=== PATIENT | male | born 1955 | race African-American/Black ===

== ENCOUNTER 2016-11-12 05:34 | Inpatient (IN) | payer BC, OTHER ==
[~2016-11-12] VITALS: Ht 182.9 cm; Wt 95.3 kg
[2016-11-12] MEDS ORDERED: ASPIRIN 81 MG TAB.CHEW PO ONE (06:30)
[2016-11-12 06:38] LABS: BASO # 0.1 x10^3/uL (0.0-0.2); BASO % 1 % (0-3); EOS % 2 % (0-3); HEMATOCRIT 40.2 % (39.0-53.0); HEMOGLOBIN 13.3 g/dL (13.0-17.5); LYMPH # 2.4 x10^3/uL (1.0-4.8); LYMPH % 28 % (24-48); MEAN CORPUSCULAR HEMOGLOBIN 30 pg (25-35); MEAN CORPUSCULAR HGB CONC 33 g/dL (31-37); MEAN CORPUSCULAR VOLUME 91 fL (79-100); MONO % 6 % (0-9); NEUT % 64 % (31-73); PLATELET COUNT 229 x10^3/uL (140-400); RED BLOOD COUNT 4.42 x10^6/uL (4.30-5.70); RED CELL DISTRIBUTION WIDTH 15.7 % (11.5-14.5); WHITE BLOOD COUNT 8.6 x10^3/uL (4.0-11.0)
[2016-11-12 06:42] LABS: CALCIUM 8.5 mg/dL (8.5-10.1); CREATININE 1.5 mg/dL (0.7-1.3); GFR 57.8; POTASSIUM 4.3 mmol/L (3.5-5.1)
--- NOTE | 2016-11-12 07:20 | PHYS DOC ---
Past Medical History Past Medical History: Hypertension, TIA Past Surgical History: Other Additional Past Surgical Histo: EYE SURGERY Alcohol Use: Occasionally Drug Use: None Adult General Chief Complaint Chief Complaint: SHORTNESS OF BREATH HPI HPI Patient is a 61 year old male who presents after episode of SOB. Patient reports he had gotten up from bed ~0500 to go sit in his chair and he had an episode where he became hot, sweaty, and SOB. This resolved after a few minutes. Not feeling SOB at this time. Only complaint now is feeling "queasy" in his lower chest/epigastrium. He denies any chest pain, pressure, tightness. No prior similar episodes. He tried taking some sylvie tom and jodee seltzer at home with insufficient relief. He has also taken a baby ASA. Review of Systems Review of Systems Constitutional: Episode of feeling hot and clammy Eyes: Denies change in visual acuity or eye pain HENT: Denies nasal congestion or sore throat Respiratory: Shortness of breath now resolved. Denies cough. Cardiovascular: Feeling "queasy" in lower chest GI: Denies abdominal pain, vomiting, bloody stools or diarrhea : Denies dysuria or hematuria Musculoskeletal: Denies back pain or joint pain Integument: Denies rash or skin lesions Neurologic: Denies headache, focal weakness or sensory changes Current Medications Current Medications Current Medications Medications (Trade) Dose Ordered Sig/Jovita Start Time Stop Time Status Last Admin Dose Admin Aspirin (Children'S Aspirin) 324 mg 1X ONCE 11/12/16 06:30 11/12/16 06:31 DC 11/12/16 06:38 324 MG Allergies Allergies Allergies Coded Allergies Type Severity Reaction Last Updated Verified Corticosteroids (Glucocorticoids) Allergy Intermediate 11/12/16 Yes Physical Exam Physical Exam Constitutional: Well developed, well nourished, no acute distress, non-toxic appearance HENT: Normocephalic, atraumatic, bilateral external ears normal Eyes: EOMI, conjunctiva normal, no discharge Neck: Normal range of motion, no stridor Cardiovascular: Tachycardic, regular rhythm with occasional irregular beat, no murmur Lungs & Thorax: Scattered coarse breath sounds Abdomen: Bowel sounds normal, soft, non-distended, no TTP Skin: Warm, dry, no erythema, no rash Extremities: No obvious deformity, no edema Neurologic: Alert and oriented X 3, no gross deficits noted Current Patient Data Vital Signs Vital Signs Date Time Temp Pulse Resp B/P Pulse Ox O2 Delivery O2 Flow Rate FiO2 11/12/16 07:13 100 18 159/90 96 Room Air 11/12/16 05:50 97.5 97.5 Lab Values Laboratory Tests Test 11/12/16 06:06 11/12/16 06:26 White Blood Count 8.6x10^3/uL (4.0-11.0) Red Blood Count 4.42x10^6/uL (4.30-5.70) Hemoglobin 13.3g/dL (13.0-17.5) Hematocrit 40.2% (39.0-53.0) Mean Corpuscular Volume 91fL (79-100) Mean Corpuscular Hemoglobin 30pg (25-35) Mean Corpuscular Hemoglobin Concent 33g/dL (31-37) Red Cell Distribution Width 15.7% (11.5-14.5) H Platelet Count 229x10^3/uL (140-400) Neutrophils (%) (Auto) 64% (31-73) Lymphocytes (%) (Auto) 28% (24-48) Monocytes (%) (Auto) 6% (0-9) Eosinophils (%) (Auto) 2% (0-3) Basophils (%) (Auto) 1% (0-3) Neutrophils # (Auto) 5.5x10^3uL (1.8-7.7) Lymphocytes # (Auto) 2.4x10^3/uL (1.0-4.8) Monocytes # (Auto) 0.5x10^3/uL (0.0-1.1) Eosinophils # (Auto) 0.2x10^3/uL (0.0-0.7) Basophils # (Auto) 0.1x10^3/uL (0.0-0.2) Sodium Level 143mmol/L (136-145) Potassium Level 4.3mmol/L (3.5-5.1) Chloride Level 106mmol/L (98-107) Carbon Dioxide Level 26mmol/L (21-32) Anion Gap 11 (6-14) Blood Urea Nitrogen 19mg/dL (8-26) Creatinine 1.5mg/dL (0.7-1.3) H Estimated GFR (Cockcroft-Gault) 57.8 Glucose Level 203mg/dL (70-99) H Calcium Level 8.5mg/dL (8.5-10.1) Troponin I Quantitative 0.057ng/mL (0.000-0.055) VF-Ryk-V-Type Natriuretic Peptide 2233pg/mL (0-124) H Laboratory Tests 11/12/16 06:06 Laboratory Tests 11/12/16 06:06 EKG EKG EKG (my read): sinus tachycardia, rate 107, LAD, single PVC noted, nonspecific ST changes Radiology/Procedures Radiology/Procedures CXR: Impression: 1. Bilateral hazy infiltrates. 2. Possible vascular congestion. Course & Med Decision Making Course & Med Decision Making Pertinent Labs and Imaging studies reviewed. (See chart for details) Patient is 61 year old male who presents after episode of SOB and diaphoresis. Concern for ACS. Will check EKG, CXR, labs. ASA ordered. Monitor shows frequent PVCs. CXR abnormal, results as above; BNP added to orders (still pending). Labs notable for minimal troponin elevation, although there is good chance that this will continue to trend up. Discussed with Dr. Munoz, will start heparin at this time. Discussed results with patient. I spoke with Dr. Cox, will admit under his care for further evaluation and treatment. Dragon Disclaimer Dragon Disclaimer This electronic medical record was generated, in whole or in part, using a voice recognition dictation system. Departure Departure Impression: Primary Impression: Elevated troponin I level Additional Impression: SOB (shortness of breath) Disposition: ADMITTED INPATIENT Admitting Physician: Nayan Cox Condition: STABLE Referrals: NON,STAFF (PCP) Problem Qualifiers LUCIA ABRAHAM MD Nov 12, 2016 07:20
[2016-11-12] MEDS ORDERED: MORPHINE SULFATE 4 MG/ML DISP.SYRIN. IV PRN (07:30)
[2016-11-12] MEDS ORDERED: NITROGLYCERIN SUBLINGUAL 0.4 MG BOTTLE OF 25. SL PRN ×2 (07:30)
[2016-11-12] MEDS ORDERED: ACETAMINOPHEN 325 MG TABLET. PO PRN (07:30)
[2016-11-12] MEDS ORDERED: HEPARIN for IV BOLUS 10,000 UNIT/10 ML VIAL. IV PRN (07:30)
[2016-11-12] MEDS ORDERED: ONDANSETRON PF 4 MG/2 ML VIAL. IV PRN (07:30)
[2016-11-12] MEDS ORDERED: HEPARIN for IV BOLUS 10,000 UNIT/10 ML VIAL. IV ONE (07:30)
--- NOTE | 2016-11-12 07:31 | RAD ---
PA and lateral chest. History: Short of breath PA and lateral views were taken of the chest. The heart is upper normal in size. There is mild pulmonary vascular congestion. There is haziness in the lungs from pulmonary edema or hazy infiltrates. There is no pleural effusion. Impression: 1. Bilateral hazy infiltrates. 2. Possible vascular congestion.
[2016-11-12] MEDS: HEPARIN 25,000UTS/500ML PREMIX 500 ML IV PRN (07:50)
--- NOTE | 2016-11-12 08:30 | EKG ---
[facility] [address] [place] [address] Test Date: 2016-11-12 Test Time: 06:20:02 Pat Name: ESTEFANÍA ZUINGA Department: Room: 260 1 Gender: M Acute Specialist: : [id number] Requested By: LUCIA ABRAHAM Order Number: [id number] Reading MD: Mirela Amin Measurements Intervals [place] Rate: 107 P: 47 [place]: 146 QRS: -16 QRSD: 100 T: 124 QT: 358 QTc: 477 Interpretive Statements SINUS TACHYCARDIA VENTRICULAR PREMATURE COMPLEX(ES) LEFT ATRIAL ABNORMALITY LEFTWARD AXIS INCOMPLETE RIGHT BUNDLE BRANCH BLOCK T ABNORMALITY IN ANTEROLATERAL LEADS ABNORMAL ECG RI6.01 No previous ECG available for comparison Electronically Signed On 11-15-2016 23:21:15 [employer]PERVISOR [employer]AK[employer] by Mirela Amin
[2016-11-12 11:30] VITALS: BP 140/104
[2016-11-12 11:31] VITALS: BP 140/106
[2016-11-12 11:47] LABS: OBC FLU VALID
[2016-11-12 14:54] VITALS: BP 156/114
[2016-11-12] MEDS ORDERED: MAGNESIUM SULFATE 1GM 100 ML IV ONE (18:00)
[2016-11-12] MEDS: NITROGLYCERIN OINT 1 GM PACKET. TP SCH (18:05)
--- NOTE | 2016-11-12 19:12 | PDOC2 ---
CONSULT Date of Consult Date of Consult DATE: 11/12/16 TIME: 19:07 Reason for Consult Reason for Consult: Shortness of breath, Referring Physician Referring Physician: Dr. Cox Identification/Chief Complaint Chief Complaint SOB Source Source: Patient History of Present Illness Reason for Visit: The patient is a 61-year-old male who presented to the emergency room with 1-2 days of increasing shortness of breath and mild epigastric discomfort. His chest x-ray showed bilateral infiltrates, EKG showed a sinus tachycardia with mild nonspecific ST-T wave changes. Lab testing was significant for troponin of 0.057, a BNP of 2233 and a magnesium level of 1.6. The patient's history is significant for hypertension and a TIA. He is feeling better at this time. He is still mildly short of breath but discomfort has resolved. Past Medical History Cardiovascular: HTN CENTRAL NERVOUS SYSTEM: TIA Past Surgical History Past Surgical History: Other (eye surgery) Family History Family History: Hypertension Social History No Current Problem List Problem List Problems Medical Problems: (1) Elevated troponin I level Status: Acute (2) SOB (shortness of breath) Status: Acute Current Medications Current Medications Current Medications Aspirin (Children'S Aspirin) 324 mg 1X ONCE PO Last administered on 11/12/16 06:38; Start 11/12/16 at 06:30; Stop 11/12/16 at 06:31; Status DC Heparin Sodium (Porcine) 4000 unit 4,000 unit 1X ONCE IV Last administered on 11/12/16 07:49; Start 11/12/16 at 07:30; Stop 11/12/16 at 07:31; Status DC Heparin Sodium/ Dextrose 500 ml @ 0 mls/hr CONT PRN IV SEE I/O RECORD Last administered on 11/12/16 07:50; Start 11/12/16 at 07:30 Heparin Sodium (Porcine) 2,400 unit PRN Q6HRS PRN IV FOR UFH LEVEL LESS THAN 0.2; Start 11/12/16 at 07:30 Nitroglycerin (Nitrostat) 0.4 mg PRN Q5MIN PRN SL CHEST PAIN; Start 11/12/16 at 07:30 Ondansetron HCl (Zofran) 4 mg PRN Q8HRS PRN IV NAUSEA/VOMITING; Start 11/12/16 at 07:30; Stop 11/13/16 at 07:29 Morphine Sulfate 4 mg PRN Q2HR PRN IV PAIN; Start 11/12/16 at 07:30; Stop at 07:29 Acetaminophen (Tylenol) 650 mg PRN Q4HRS PRN PO FEVER; Start 11/12/16 at 07:30; Stop 11/13/16 at 07:29 Nitroglycerin (Nitrostat) 0.4 mg PRN Q5MIN PRN SL CHEST PAIN; Start 11/12/16 at 07:30; Stop 11/13/16 at 07:29 Nitroglycerin 1 inch 1 inch Q6HRS TP Last administered on 11/12/16 18:05; Start 11/12/16 at 18:00 Magnesium Sulfate/ Dextrose (Magnesium Sulfate PREMIX 1GM) 100 ml @ 100 mls/hr 1X ONCE IV Last administered on 11/12/16 18:05; Start 11/12/16 at 18:00; Stop 11/12/16 at 18:59; Status DC Allergies Allergies: Coded Allergies: Corticosteroids (Glucocorticoids) (Verified Allergy, Intermediate, 11/12/16) ROS Respiratory: YES: SOB with excertion, Shortness of breath Physical Exam General: mild distress HEENT: Atraumatic Lungs: Other (mildly decreased breath sounds) Heart: Other (tachycardia rate of 14) Abdomen: Normal bowel sounds Vitals VITALS Vital Signs Date Time Temp Pulse Resp B/P Pulse Ox O2 Delivery O2 Flow Rate FiO2 11/12/16 18:05 92 156/114 11/12/16 14:54 98.1 16 97 Room Air 98.1 Labs Labs Laboratory Tests Test 11/12/16 06:06 11/12/16 06:26 11/12/16 13:10 11/12/16 14:10 White Blood Count 8.6x10^3/uL (4.0-11.0) Red Blood Count 4.42x10^6/uL (4.30-5.70) Hemoglobin 13.3g/dL (13.0-17.5) Hematocrit 40.2% (39.0-53.0) Mean Corpuscular Volume 91fL (79-100) Mean Corpuscular Hemoglobin 30pg (25-35) Mean Corpuscular Hemoglobin Concent 33g/dL (31-37) Red Cell Distribution Width 15.7% (11.5-14.5) Platelet Count 229x10^3/uL (140-400) Neutrophils (%) (Auto) 64% (31-73) Lymphocytes (%) (Auto) 28% (24-48) Monocytes (%) (Auto) 6% (0-9) Eosinophils (%) (Auto) 2% (0-3) Basophils (%) (Auto) 1% (0-3) Neutrophils # (Auto) 5.5x10^3uL (1.8-7.7) Lymphocytes # (Auto) 2.4x10^3/uL (1.0-4.8) Monocytes # (Auto) 0.5x10^3/uL (0.0-1.1) Eosinophils # (Auto) 0.2x10^3/uL (0.0-0.7) Basophils # (Auto) 0.1x10^3/uL (0.0-0.2) Sodium Level 143mmol/L (136-145) Potassium Level 4.3mmol/L (3.5-5.1) Chloride Level 106mmol/L (98-107) Carbon Dioxide Level 26mmol/L (21-32) Anion Gap 11 (6-14) Blood Urea Nitrogen 19mg/dL (8-26) Creatinine 1.5mg/dL (0.7-1.3) Estimated GFR (Cockcroft-Gault) 57.8 Glucose Level 203mg/dL (70-99) Calcium Level 8.5mg/dL (8.5-10.1) Magnesium Level 1.6mg/dL (1.8-2.4) Troponin I Quantitative 0.057ng/mL (0.000-0.055) 0.078ng/mL (0.000-0.055) Influenza Type A Antigen Negative (NEGATIVE) Influenza Type B Antigen Negative (NEGATIVE) EB-Jwp-C-Type Natriuretic Peptide 2233pg/mL (0-124) Heparin Anti-Xa Act, Unfractionated 0.30IU/mL (0.30-0.70) Laboratory Tests Test 11/12/16 06:06 11/12/16 06:26 11/12/16 13:10 11/12/16 14:10 White Blood Count 8.6x10^3/uL (4.0-11.0) Red Blood Count 4.42x10^6/uL (4.30-5.70) Hemoglobin 13.3g/dL (13.0-17.5) Hematocrit 40.2% (39.0-53.0) Mean Corpuscular Volume 91fL (79-100) Mean Corpuscular Hemoglobin 30pg (25-35) Mean Corpuscular Hemoglobin Concent 33g/dL (31-37) Red Cell Distribution Width 15.7% (11.5-14.5) Platelet Count 229x10^3/uL (140-400) Neutrophils (%) (Auto) 64% (31-73) Lymphocytes (%) (Auto) 28% (24-48) Monocytes (%) (Auto) 6% (0-9) Eosinophils (%) (Auto) 2% (0-3) Basophils (%) (Auto) 1% (0-3) Neutrophils # (Auto) 5.5x10^3uL (1.8-7.7) Lymphocytes # (Auto) 2.4x10^3/uL (1.0-4.8) Monocytes # (Auto) 0.5x10^3/uL (0.0-1.1) Eosinophils # (Auto) 0.2x10^3/uL (0.0-0.7) Basophils # (Auto) 0.1x10^3/uL (0.0-0.2) Sodium Level 143mmol/L (136-145) Potassium Level 4.3mmol/L (3.5-5.1) Chloride Level 106mmol/L (98-107) Carbon Dioxide Level 26mmol/L (21-32) Anion Gap 11 (6-14) Blood Urea Nitrogen 19mg/dL (8-26) Creatinine 1.5mg/dL (0.7-1.3) Estimated GFR (Cockcroft-Gault) 57.8 Glucose Level 203mg/dL (70-99) Calcium Level 8.5mg/dL (8.5-10.1) Magnesium Level 1.6mg/dL (1.8-2.4) Troponin I Quantitative 0.057ng/mL (0.000-0.055) 0.078ng/mL (0.000-0.055) Influenza Type A Antigen Negative (NEGATIVE) Influenza Type B Antigen Negative (NEGATIVE) BR-Wdd-O-Type Natriuretic Peptide 2233pg/mL (0-124) Heparin Anti-Xa Act, Unfractionated 0.30IU/mL (0.30-0.70) Images Images Chest x-ray shows bilateral infiltrates. Assessment/Plan Assessment/Plan 1. Shortness of breath. Probable acute on chronic diastolic heart failure. BNP of 2233. Patient has been treated with pulmonary medications and mild diuresis and is feeling better. We'll check an echocardiogram. Continue present medications. 2. Mild elevation in troponin. We'll rule out for myocardial infarction. No acute EKG changes. Echocardiogram as above. 3. Hypomagnesemia. Replace and monitor magnesium. 4. Hypertension. We'll adjust all medications. 5. History of a TIA. Thank you for allowing us to participate in the care of your patient. SCOTT HUNT MD Nov 12, 2016 19:12
[2016-11-12 19:30] VITALS: BP 118/88
[2016-11-12 23:30] VITALS: BP 132/86
--- NOTE | 2016-11-13 02:57 | HP ---
ADMIT DATE: 11/12/2016 CHIEF COMPLAINT: Shortness of breath. HISTORY OF PRESENT ILLNESS: The patient is a pleasant 61-year-old male who presents with shortness of breath. It has been occurring for several days. He tried increasing his home meds, but that was not working. He has associated sweating. While he was in the ER, he was noted to have a slight bump in his troponin to 0.05, but his creatinine is also little high at 1.5. I suspect this could be chronic. His BNP level is also high at 2233. Chest x-ray is showing some bilateral hazy infiltrates and possible CHF. The patient will be admitted. We will consult Pulmonary Medicine and Cardiology. PAST MEDICAL HISTORY: Reviewed. Please refer to the computerized H and P including hypertension, TIAs and eye surgery. ALLERGIES: Corticosteroids. FAMILY HISTORY: Coronary artery disease. SOCIAL HISTORY: Does not drink, smoke or take drugs. MEDICATIONS: Reviewed, please refer to the MRAD. REVIEW OF SYSTEMS: GENERAL: No history of weight change, weakness or fevers. SKIN: No bruising, hair changes or rashes. EYES: No blurred, double or loss of vision. NOSE AND THROAT: No history of nosebleeds, hoarseness or sore throat. HEART: No history of palpitations, chest pain or shortness of breath on exertion. PULMONARY: Complains of shortness of breath. GASTROINTESTINAL: Denies changes in appetite, nausea, vomiting, diarrhea or constipation. GENITOURINARY: No history of frequency, urgency, hesitancy or nocturia. NEUROLOGIC: Denies history of numbness, tingling, tremor or weakness. PSYCHIATRIC: No history of panic, anxiety or depression. ENDOCRINE: No history of heat or cold intolerance, polyuria or polydipsia. EXTREMITIES: Denies muscle weakness, joint pain, pain on walking or stiffness. PHYSICAL EXAMINATION: VITAL SIGNS: Temperature afebrile, pulse 67, respirations 18, blood pressure 140/104, O2 sats 96% on room air. GENERAL: He is alert, cooperative. HEART: Normal S1, S2. LUNGS: Clear with slight crackles on the right. ABDOMEN: Soft, positive bowel sounds. EXTREMITIES: 1+ edema. SKIN: No rashes. PSYCHIATRIC: Stable. VASCULAR: Good capillary refill. ENDOCRINE: No thyromegaly. LYMPHATICS: No cervical nodes. HEMATOPOIETIC: No bruising. LABORATORY DATA: White count 8, hemoglobin 13, platelets 229. Electrolytes normal other than a creatinine of 1.5. Troponin 0.057. BNP 2233. ASSESSMENT AND PLAN: Acute on chronic systolic and diastolic heart failure with a possible myocardial infarction, chronic renal insufficiency and possible pneumonia. The patient has been admitted. We are consulting Cardiology and Pulmonary Medicine. PT, OT to evaluate and treat. Frequent labs. DuJosephb, p.r.n. oxygen. Long-term prognosis is guarded. GLENROY GRANADOS DO DR: DALJIT/maddison JOB#: [id number] / [id number]
[2016-11-13 03:32] VITALS: BP 146/96
[2016-11-13 05:34] LABS: BASO % 1 % (0-3); EOS % 4 % (0-3); HEMATOCRIT 41.7 % (39.0-53.0); HEMOGLOBIN 13.5 g/dL (13.0-17.5); LYMPH % 31 % (24-48); MEAN CORPUSCULAR HEMOGLOBIN 30 pg (25-35); MEAN CORPUSCULAR HGB CONC 32 g/dL (31-37); MEAN CORPUSCULAR VOLUME 92 fL (79-100); MONO % 10 % (0-9); NEUT % 54 % (31-73); PLATELET COUNT 223 x10^3/uL (140-400); RED BLOOD COUNT 4.51 x10^6/uL (4.30-5.70); RED CELL DISTRIBUTION WIDTH 15.3 % (11.5-14.5); WHITE BLOOD COUNT 6.6 x10^3/uL (4.0-11.0)
[2016-11-13 05:54] LABS: CALCIUM 8.7 mg/dL (8.5-10.1); CREATININE 1.2 mg/dL (0.7-1.3); GFR 74.7; POTASSIUM 3.5 mmol/L (3.5-5.1)
[2016-11-13 06:00] LABS: CHOLESTEROL/HDL RATIO 3.6; MAGNESIUM 1.8 mg/dL (1.8-2.4)
[2016-11-13] MEDS: HEPARIN 25,000UTS/500ML PREMIX 500 ML IV PRN (06:21)
[2016-11-13] MEDS: NITROGLYCERIN OINT 1 GM PACKET. TP SCH ×4 (06:22→18:15)
[2016-11-13 07:00] VITALS: BP 130/95
[2016-11-13 11:00] VITALS: BP 131/98
--- NOTE | 2016-11-13 11:14 | CARD ---
APPROVED REPORT EXAM: Two-dimensional and M-mode echocardiogram with Doppler and color Doppler. Other Information Quality : Average Rhythm : NSR INDICATION Congestive Heart Failure 2D DIMENSIONS RVDd2.4 (2.9-3.5cm)Left Atrium(2D)4.7 (1.6-4.0cm) IVSd1.8 (0.7-1.1cm)Aortic Root(2D)3.4 (2.0-3.7cm) LVDd6.0 (3.9-5.9cm)LVOT Diameter2.5 (1.8-2.4cm) PWd1.8 (0.7-1.1cm)LVDs6.3 (2.5-4.0cm) FS (%) 6.1 %SV25.9 ml LVEF(%)14.6 (>50%) Aortic Valve AoV Peak Elio.76.5cm/sAoV VTI10.2cm AO Peak GR.2.3mmHgLVOT Peak Elio.59.5cm/s LVOT VTI 7.80cmAO Mean GR.1mmHg LUCAS (VMAX)3.12ml5CNY (VTI)3.69cm2 Mitral Valve MV E Aggxdgse39.0cm/sMV E Peak Gr.83mmHg MV DECEL [id number] A Jllidkft86.4cm/s MV E Mean Gr.1mmHgMV NRU57mp E/A Ratio1.4MV A Htadlbxr64qm MVA (PHT)6.21cm2 TDI E/Lateral E'6.4E/Medial E'9.6 Pulmonary Valve RVOT VTI7.5cm Tricuspid Valve TR P. Jbhcotld381qv/sRAP [id number] TR Peak Gr.35jcXsOKBY53axXl LEFT VENTRICLE The Left Ventricle is mildly dilated. There is moderate concentric left ventricular hypertrophy. Left ventricle systolic function is severely impaired. The Ejection Fraction is 10-15%. There is severe g lobal hypokinesis of the left ventricle. Tissue Doppler imaging reveals severe left ventricular diast olic dysfunction. RIGHT VENTRICLE The right ventricle is normal size. The right ventricular systolic function is normal. ATRIA The left atrium is mildly dilated. The right atrium size is normal. The interatrial septum is intact with no evidence for an atrial septal defect or patent foramen ovale as noted on 2-D or Doppler imagi ng. The septum bows towards the right suggestive of increased left atrial pressures. AORTIC VALVE The aortic valve is normal in structure and function. The aortic valve is trileaflet. Doppler and Col or Flow revealed no significant aortic regurgitation. There is no significant aortic valvular stenosi s. MITRAL VALVE The mitral valve leaflets are thickened. The posterior leaflet is restricted in motion. There is no m itral valve stenosis. Doppler and Color Flow revealed moderate posteriorly directed mitral regurgitat ion. TRICUSPID VALVE The tricuspid valve is normal in structure and function. Doppler and Color Flow revealed moderate tri cuspid regurgitation. There is moderate pulmonary hypertension. The PA pressure was estimated at 51 m mHg. There is no tricuspid valve stenosis. PULMONIC VALVE Doppler and Color Flow revealed mild pulmonic valvular regurgitation. There is no pulmonic valvular s tenosis. GREAT VESSELS The aortic root is normal in size. The IVC is normal in size and collapses >50% with inspiration. PERICARDIAL EFFUSION There is no evidence of significant pericardial effusion. Critical Notification Date: 11/13/2016 Time: 10:10 Other Discipline : Giovanna Harrison APRN Critical Value: Yes <Conclusion> Left ventricle systolic function is severely impaired. The Ejection Fraction is 10-15%. There is severe global hypokinesis of the left ventricle. Tissue Doppler imaging reveals severe left ventricular diastolic dysfunction. Doppler and Color Flow revealed moderate tricuspid regurgitation. There is moderate pulmonary hyperte nsion. The PA pressure was estimated at 51 mmHg. Doppler and Color Flow revealed moderate posteriorly directed mitral regurgitation.
[2016-11-13] MEDS ORDERED: SULFUR HEXAFLUORIDE MICROSPHR 25 MG VIAL. IVP ONE ×3 (11:44→12:00)
--- NOTE | 2016-11-13 11:48 | PDOC ---
PROGRESS NOTES Chief Complaint Chief Complaint cc: sob A/P ACUTE ON CHORIONIC SYSTOLIC CHF SEVERE CARDIOMYOPATHY ELEVATED TROPONIN PLAN IV LASIX 40 TIMES 1, MONITOR AND REPLACE ELECTROLYTES ON HEPARIN GTT PER ACS PROTOCOL, POSSIBLE CARDIAC CATH IN AM TO R/O CAD D/W AT BEDSIDE COREG AND LISINOPRIL ELECTROLYTE REPLACED. , History of Present Illness History of Present Illness NO CHEST PAIN NO SOB NO FEVER NO SWEATING Vitals Vitals Vital Signs Date Time Temp Pulse Resp B/P Pulse Ox O2 Delivery O2 Flow Rate FiO2 11/13/16 11:00 97.6 89 20 131/98 97 Room Air 97.6 Physical Exam General: Alert, Oriented X3, mild distress Heart: Regular rate, Normal S1, Normal S2, Other Lungs: Clear Abdomen: Normal bowel sounds, Soft Extremities: No clubbing, No cyanosis Labs LABS Laboratory Tests Test 11/12/16 13:10 11/12/16 14:10 11/12/16 19:15 11/12/16 22:05 Troponin I Quantitative 0.078ng/mL (0.000-0.055) 0.060ng/mL (0.000-0.055) Heparin Anti-Xa Act, Unfractionated 0.30IU/mL (0.30-0.70) 0.26IU/mL (0.30-0.70) Test 11/13/16 05:00 11/13/16 05:09 11/13/16 10:45 Heparin Anti-Xa Act, Unfractionated 0.37IU/mL (0.30-0.70) 0.45IU/mL (0.30-0.70) White Blood Count 6.6x10^3/uL (4.0-11.0) Red Blood Count 4.51x10^6/uL (4.30-5.70) Hemoglobin 13.5g/dL (13.0-17.5) Hematocrit 41.7% (39.0-53.0) Mean Corpuscular Volume 92fL (79-100) Mean Corpuscular Hemoglobin 30pg (25-35) Mean Corpuscular Hemoglobin Concent 32g/dL (31-37) Red Cell Distribution Width 15.3% (11.5-14.5) Platelet Count 223x10^3/uL (140-400) Neutrophils (%) (Auto) 54% (31-73) Lymphocytes (%) (Auto) 31% (24-48) Monocytes (%) (Auto) 10% (0-9) Eosinophils (%) (Auto) 4% (0-3) Basophils (%) (Auto) 1% (0-3) Neutrophils # (Auto) 3.6x10^3uL (1.8-7.7) Lymphocytes # (Auto) 2.0x10^3/uL (1.0-4.8) Monocytes # (Auto) 0.7x10^3/uL (0.0-1.1) Eosinophils # (Auto) 0.2x10^3/uL (0.0-0.7) Basophils # (Auto) 0.0x10^3/uL (0.0-0.2) Sodium Level 141mmol/L (136-145) Potassium Level 3.5mmol/L (3.5-5.1) Chloride Level 105mmol/L (98-107) Carbon Dioxide Level 27mmol/L (21-32) Anion Gap 9 (6-14) Blood Urea Nitrogen 10mg/dL (8-26) Creatinine 1.2mg/dL (0.7-1.3) Estimated GFR (Cockcroft-Gault) 74.7 Glucose Level 137mg/dL (70-99) Calcium Level 8.7mg/dL (8.5-10.1) Magnesium Level 1.8mg/dL (1.8-2.4) Troponin I Quantitative 0.082ng/mL (0.000-0.055) Triglycerides Level 106mg/dL (0-150) Cholesterol Level 171mg/dL (0-200) LDL Cholesterol, Calculated 103mg/dL (0-100) VLDL Cholesterol, Calculated 21mg/dL (0-40) HDL Cholesterol 47mg/dL (40-60) Cholesterol/HDL Ratio 3.6 Assessment and Plan Assessmemt and Plan Problems Medical Problems: (1) Elevated troponin I level Status: Acute (2) SOB (shortness of breath) Status: Acute Problems: Comment Review of Relevant I have reviewed the following items varsha (where applicable) has been applied. Labs Laboratory Tests Test 11/12/16 06:06 11/12/16 06:26 11/12/16 13:10 11/12/16 14:10 White Blood Count 8.6x10^3/uL (4.0-11.0) Red Blood Count 4.42x10^6/uL (4.30-5.70) Hemoglobin 13.3g/dL (13.0-17.5) Hematocrit 40.2% (39.0-53.0) Mean Corpuscular Volume 91fL (79-100) Mean Corpuscular Hemoglobin 30pg (25-35) Mean Corpuscular Hemoglobin Concent 33g/dL (31-37) Red Cell Distribution Width 15.7% (11.5-14.5) Platelet Count 229x10^3/uL (140-400) Neutrophils (%) (Auto) 64% (31-73) Lymphocytes (%) (Auto) 28% (24-48) Monocytes (%) (Auto) 6% (0-9) Eosinophils (%) (Auto) 2% (0-3) Basophils (%) (Auto) 1% (0-3) Neutrophils # (Auto) 5.5x10^3uL (1.8-7.7) Lymphocytes # (Auto) 2.4x10^3/uL (1.0-4.8) Monocytes # (Auto) 0.5x10^3/uL (0.0-1.1) Eosinophils # (Auto) 0.2x10^3/uL (0.0-0.7) Basophils # (Auto) 0.1x10^3/uL (0.0-0.2) Sodium Level 143mmol/L (136-145) Potassium Level 4.3mmol/L (3.5-5.1) Chloride Level 106mmol/L (98-107) Carbon Dioxide Level 26mmol/L (21-32) Anion Gap 11 (6-14) Blood Urea Nitrogen 19mg/dL (8-26) Creatinine 1.5mg/dL (0.7-1.3) Estimated GFR (Cockcroft-Gault) 57.8 Glucose Level 203mg/dL (70-99) Calcium Level 8.5mg/dL (8.5-10.1) Magnesium Level 1.6mg/dL (1.8-2.4) Troponin I Quantitative 0.057ng/mL (0.000-0.055) 0.078ng/mL (0.000-0.055) Influenza Type A Antigen Negative (NEGATIVE) Influenza Type B Antigen Negative (NEGATIVE) CV-Low-H-Type Natriuretic Peptide 2233pg/mL (0-124) Heparin Anti-Xa Act, Unfractionated 0.30IU/mL (0.30-0.70) Test 11/12/16 19:15 11/12/16 22:05 11/13/16 05:00 11/13/16 05:09 Troponin I Quantitative 0.060ng/mL (0.000-0.055) 0.082ng/mL (0.000-0.055) Heparin Anti-Xa Act, Unfractionated 0.26IU/mL (0.30-0.70) 0.37IU/mL (0.30-0.70) White Blood Count 6.6x10^3/uL (4.0-11.0) Red Blood Count 4.51x10^6/uL (4.30-5.70) Hemoglobin 13.5g/dL (13.0-17.5) Hematocrit 41.7% (39.0-53.0) Mean Corpuscular Volume 92fL (79-100) Mean Corpuscular Hemoglobin 30pg (25-35) Mean Corpuscular Hemoglobin Concent 32g/dL (31-37) Red Cell Distribution Width 15.3% (11.5-14.5) Platelet Count 223x10^3/uL (140-400) Neutrophils (%) (Auto) 54% (31-73) Lymphocytes (%) (Auto) 31% (24-48) Monocytes (%) (Auto) 10% (0-9) Eosinophils (%) (Auto) 4% (0-3) Basophils (%) (Auto) 1% (0-3) Neutrophils # (Auto) 3.6x10^3uL (1.8-7.7) Lymphocytes # (Auto) 2.0x10^3/uL (1.0-4.8) Monocytes # (Auto) 0.7x10^3/uL (0.0-1.1) Eosinophils # (Auto) 0.2x10^3/uL (0.0-0.7) Basophils # (Auto) 0.0x10^3/uL (0.0-0.2) Sodium Level 141mmol/L (136-145) Potassium Level 3.5mmol/L (3.5-5.1) Chloride Level 105mmol/L (98-107) Carbon Dioxide Level 27mmol/L (21-32) Anion Gap 9 (6-14) Blood Urea Nitrogen 10mg/dL (8-26) Creatinine 1.2mg/dL (0.7-1.3) Estimated GFR (Cockcroft-Gault) 74.7 Glucose Level 137mg/dL (70-99) Calcium Level 8.7mg/dL (8.5-10.1) Magnesium Level 1.8mg/dL (1.8-2.4) Triglycerides Level 106mg/dL (0-150) Cholesterol Level 171mg/dL (0-200) LDL Cholesterol, Calculated 103mg/dL (0-100) VLDL Cholesterol, Calculated 21mg/dL (0-40) HDL Cholesterol 47mg/dL (40-60) Cholesterol/HDL Ratio 3.6 Test 11/13/16 10:45 Heparin Anti-Xa Act, Unfractionated 0.45IU/mL (0.30-0.70) Laboratory Tests Test 11/12/16 13:10 11/12/16 14:10 11/12/16 19:15 11/12/16 22:05 Troponin I Quantitative 0.078ng/mL (0.000-0.055) 0.060ng/mL (0.000-0.055) Heparin Anti-Xa Act, Unfractionated 0.30IU/mL (0.30-0.70) 0.26IU/mL (0.30-0.70) Test 11/13/16 05:00 11/13/16 05:09 11/13/16 10:45 Heparin Anti-Xa Act, Unfractionated 0.37IU/mL (0.30-0.70) 0.45IU/mL (0.30-0.70) White Blood Count 6.6x10^3/uL (4.0-11.0) Red Blood Count 4.51x10^6/uL (4.30-5.70) Hemoglobin 13.5g/dL (13.0-17.5) Hematocrit 41.7% (39.0-53.0) Mean Corpuscular Volume 92fL (79-100) Mean Corpuscular Hemoglobin 30pg (25-35) Mean Corpuscular Hemoglobin Concent 32g/dL (31-37) Red Cell Distribution Width 15.3% (11.5-14.5) Platelet Count 223x10^3/uL (140-400) Neutrophils (%) (Auto) 54% (31-73) Lymphocytes (%) (Auto) 31% (24-48) Monocytes (%) (Auto) 10% (0-9) Eosinophils (%) (Auto) 4% (0-3) Basophils (%) (Auto) 1% (0-3) Neutrophils # (Auto) 3.6x10^3uL (1.8-7.7) Lymphocytes # (Auto) 2.0x10^3/uL (1.0-4.8) Monocytes # (Auto) 0.7x10^3/uL (0.0-1.1) Eosinophils # (Auto) 0.2x10^3/uL (0.0-0.7) Basophils # (Auto) 0.0x10^3/uL (0.0-0.2) Sodium Level 141mmol/L (136-145) Potassium Level 3.5mmol/L (3.5-5.1) Chloride Level 105mmol/L (98-107) Carbon Dioxide Level 27mmol/L (21-32) Anion Gap 9 (6-14) Blood Urea Nitrogen 10mg/dL (8-26) Creatinine 1.2mg/dL (0.7-1.3) Estimated GFR (Cockcroft-Gault) 74.7 Glucose Level 137mg/dL (70-99) Calcium Level 8.7mg/dL (8.5-10.1) Magnesium Level 1.8mg/dL (1.8-2.4) Troponin I Quantitative 0.082ng/mL (0.000-0.055) Triglycerides Level 106mg/dL (0-150) Cholesterol Level 171mg/dL (0-200) LDL Cholesterol, Calculated 103mg/dL (0-100) VLDL Cholesterol, Calculated 21mg/dL (0-40) HDL Cholesterol 47mg/dL (40-60) Cholesterol/HDL Ratio 3.6 Medications Current Medications Aspirin (Children'S Aspirin) 324 mg 1X ONCE PO Last administered on 11/12/16 06:38; Start 11/12/16 at 06:30; Stop 11/12/16 at 06:31; Status DC Heparin Sodium (Porcine) 4000 unit 4,000 unit 1X ONCE IV Last administered on 11/12/16 07:49; Start 11/12/16 at 07:30; Stop 11/12/16 at 07:31; Status DC Heparin Sodium/ Dextrose 500 ml @ 0 mls/hr CONT PRN IV SEE I/O RECORD Last administered on 11/13/16 06:21; Start 11/12/16 at 07:30 Heparin Sodium (Porcine) 2,400 unit PRN Q6HRS PRN IV FOR UFH LEVEL LESS THAN 0.2; Start 11/12/16 at 07:30 Nitroglycerin (Nitrostat) 0.4 mg PRN Q5MIN PRN SL CHEST PAIN; Start 11/12/16 at 07:30 Ondansetron HCl (Zofran) 4 mg PRN Q8HRS PRN IV NAUSEA/VOMITING; Start 11/12/16 at 07:30; Stop 11/13/16 at 07:29; Status DC Morphine Sulfate 4 mg PRN Q2HR PRN IV PAIN; Start 11/12/16 at 07:30; Stop at 07:29; Status DC Acetaminophen (Tylenol) 650 mg PRN Q4HRS PRN PO FEVER; Start 11/12/16 at 07:30; Stop 11/13/16 at 07:29; Status DC Nitroglycerin (Nitrostat) 0.4 mg PRN Q5MIN PRN SL CHEST PAIN; Start 11/12/16 at 07:30; Stop 11/13/16 at 07:29; Status DC Nitroglycerin 1 inch 1 inch Q6HRS TP Last administered on 11/13/16 06:22; Start 11/12/16 at 18:00 Magnesium Sulfate/ Dextrose (Magnesium Sulfate PREMIX 1GM) 100 ml @ 100 mls/hr 1X ONCE IV Last administered on 11/12/16 18:05; Start 11/12/16 at 18:00; Stop 11/12/16 at 18:59; Status DC Sulfur Hexafluoride Microspheres (Lumason) 25 mg STK-MED ONCE IVP ; Start at 11:44; Stop 11/13/16 at 11:45; Status DC Vitals/I & O Vital Sign - Last 24 Hours 11/12/16 11/12/16 11/12/16 11/12/16 14:54 18:05 19:30 19:57 Temp 98.1 98.3 98.1 98.3 Pulse 92 92 92 Resp 16 18 B/P 156/114 156/114 118/88 Pulse Ox 97 98 O2 Delivery Room Air Room Air Room Air 11/12/16 11/13/16 11/13/16 11/13/16 23:30 00:00 03:32 06:22 Temp 98.3 97.9 98.3 97.9 Pulse 86 86 94 90 Resp 16 18 B/P 132/86 132/86 146/96 146/96 Pulse Ox 97 97 O2 Delivery Room Air Room Air 11/13/16 11/13/16 07:00 11:00 Temp 97.7 97.6 97.7 97.6 Pulse 87 89 Resp 20 20 B/P 130/95 131/98 Pulse Ox 98 97 O2 Delivery Room Air Room Air Intake and Output 11/12/16 11/12/16 11/13/16 15:00 23:00 07:00 Intake Total 800 ml 996 ml Balance 800 ml 996 ml JOAN PHILLIPS MD Nov 13, 2016 11:47
[2016-11-13] MEDS ORDERED: hydrALAZINE 20 MG/ML VIAL. IVP PRN (12:00)
[2016-11-13] MEDS ORDERED: HYDROCODONE/APAP 5/325MG TABLET. PO PRN (12:00)
[2016-11-13] MEDS ORDERED: ALBUTEROL SULFATE 2.5 MG/3 ML NEBU. NEB PRN (12:00)
[2016-11-13] MEDS ORDERED: ANTI-COAG MONITOR BY PHARMACY. MC PRN (12:00)
[2016-11-13] MEDS ORDERED: FUROSEMIDE 20 MG/2 ML VIAL IVP ONE ×2 (12:00→16:00)
[2016-11-13] MEDS ORDERED: ONDANSETRON PF 4 MG/2 ML VIAL. IV PRN (12:00)
--- NOTE | 2016-11-13 13:54 | PDOC ---
CARDIO Progress Notes Date and Time Date of Service 11/13/2016 Time of Evaluation 1342 Subjective Subjective: No Chest Pain, No Palpitations, No Dizziness Comments: walking room Vitals Vitals Vital Signs Date Time Temp Pulse Resp B/P Pulse Ox O2 Delivery O2 Flow Rate FiO2 11/13/16 13:07 89 131/98 11/13/16 11:00 97.6 20 97 Room Air 97.6 Weight Weight [ ] Input and Output Intake and Output Intake and Output 11/13/16 07:00 Intake Total 1796 ml Balance 1796 ml Intake Oral 1300 ml IV Total 496 ml # Voids 4 Laboratory Labs Laboratory Tests Test 11/12/16 14:10 11/12/16 19:15 11/12/16 22:05 11/13/16 05:00 Heparin Anti-Xa Act, Unfractionated 0.30IU/mL (0.30-0.70) 0.26IU/mL (0.30-0.70) 0.37IU/mL (0.30-0.70) Troponin I Quantitative 0.060ng/mL (0.000-0.055) Test 11/13/16 05:09 11/13/16 10:45 White Blood Count 6.6x10^3/uL (4.0-11.0) Red Blood Count 4.51x10^6/uL (4.30-5.70) Hemoglobin 13.5g/dL (13.0-17.5) Hematocrit 41.7% (39.0-53.0) Mean Corpuscular Volume 92fL (79-100) Mean Corpuscular Hemoglobin 30pg (25-35) Mean Corpuscular Hemoglobin Concent 32g/dL (31-37) Red Cell Distribution Width 15.3% (11.5-14.5) Platelet Count 223x10^3/uL (140-400) Neutrophils (%) (Auto) 54% (31-73) Lymphocytes (%) (Auto) 31% (24-48) Monocytes (%) (Auto) 10% (0-9) Eosinophils (%) (Auto) 4% (0-3) Basophils (%) (Auto) 1% (0-3) Neutrophils # (Auto) 3.6x10^3uL (1.8-7.7) Lymphocytes # (Auto) 2.0x10^3/uL (1.0-4.8) Monocytes # (Auto) 0.7x10^3/uL (0.0-1.1) Eosinophils # (Auto) 0.2x10^3/uL (0.0-0.7) Basophils # (Auto) 0.0x10^3/uL (0.0-0.2) Sodium Level 141mmol/L (136-145) Potassium Level 3.5mmol/L (3.5-5.1) Chloride Level 105mmol/L (98-107) Carbon Dioxide Level 27mmol/L (21-32) Anion Gap 9 (6-14) Blood Urea Nitrogen 10mg/dL (8-26) Creatinine 1.2mg/dL (0.7-1.3) Estimated GFR (Cockcroft-Gault) 74.7 Glucose Level 137mg/dL (70-99) Calcium Level 8.7mg/dL (8.5-10.1) Magnesium Level 1.8mg/dL (1.8-2.4) Troponin I Quantitative 0.082ng/mL (0.000-0.055) Triglycerides Level 106mg/dL (0-150) Cholesterol Level 171mg/dL (0-200) LDL Cholesterol, Calculated 103mg/dL (0-100) VLDL Cholesterol, Calculated 21mg/dL (0-40) HDL Cholesterol 47mg/dL (40-60) Cholesterol/HDL Ratio 3.6 Heparin Anti-Xa Act, Unfractionated 0.45IU/mL (0.30-0.70) Physical Exam HEENT: Neck Supple W Full Motion Chest: Symmetric LUNGS: Clear to Auscultation Heart: S1S2, RRR, no murmurs, other (? S3; tele: SR/ST) Abdomen: Soft N/T Extremities: No Edema Neurology: alert, oriented, follow commands Diagnostic Tests Echocardiogram: Other (LVEF 10-15% with severe global hypokinesis of LV; severe LV diastolic dysfunction; moderate TR with posteriorly directed MR; moderate Pulm HTN with PA = 51 mm Hg) Assessment Assessment 1. acute on chronic systolic and diastolic CHF depressed LVEF ~ 10-15% - suspect etiology of dyspnea starting BB and ACEI no diuretics today as expecting to use contrast tomorrow 2. Mild elevation in troponin echo with depressed LVEF and WMA - severe global hypokinesis discussed need for cardiac cath for further evaluation with R/B/A discussed 3. Cardiomyopathy with LVEF 10-15% will need further evaluation to determine etiology starting BB and ACEI will need LifeVest for prevention of SCD at discharge 4. Hypomagnesemia level 1.8 today and will replaced 5. Hypertension adding BB and ACEI 6. HLD LDLs > 100 starting statin therapy 7. History of a TIA. JONATHAN BRADLEY APRN Nov 13, 2016 13:54
[2016-11-13] MEDS ORDERED: MAGNESIUM SULFATE 2GM 50 ML IV ONE (14:00)
[2016-11-13] MEDS ORDERED: POTASSIUM CHLORIDE 20 MEQ TABLET.ER. PO ONE (14:00)
[2016-11-13] MEDS ORDERED: ASPIRIN 325 MG TABLET PO ONE (14:00)
[2016-11-13 15:00] VITALS: BP 118/75
--- NOTE | 2016-11-13 15:32 | PDOC ---
Provider Note Provider Note dictated MICHAEL SWANSON MD Nov 13, 2016 15:32
[2016-11-13] MEDS ORDERED: FUROSEMIDE 40 MG/4 ML VIAL IVP ONE (15:45)
--- NOTE | 2016-11-13 16:59 | CARD ---
APPROVED REPORT EXAM: LIMITED Two-dimensional echocardiogram with contrast. Other Information Quality : Average Rhythm : NSR INDICATION R/O thrombus Echo Enhancing Agent Indication: Rule out thrombus Agent/Amount Used: Lumason 2mL LEFT VENTRICLE The Left Ventricle is mildly dilated. There is normal left ventricular wall thickness. Left ventricle systolic function is severely impaired. The Ejection Fraction is 10-15%. There is severe global hypo kinesis of the left ventricle. No left ventricle thrombus noted on this study. GREAT VESSELS Not assessed. PERICARDIAL EFFUSION There is no evidence of significant pericardial effusion. Critical Notification Critical Value: No <Conclusion> Repeat limited echo performed with contrast enhancement does not reveal any clear evidence of thrombu s or non-compaction cardiomyopathy.
[2016-11-13] MEDS: CARVEDILOL 6.25 MG TABLET PO SCH (18:15)
[2016-11-13 19:39] VITALS: BP 109/78
[2016-11-13] MEDS: LISINOPRIL 2.5 MG TABLET PO SCH (21:09)
[2016-11-13] MEDS: ATORVASTATIN CALCIUM 20 MG TABLET PO SCH (21:09)
[2016-11-13 22:25] VITALS: BP 122/89
[2016-11-14] VITALS (15 sets, daily range): BP systolic 103–119; BP diastolic 65–89
[2016-11-14] MEDS: HEPARIN 25,000UTS/500ML PREMIX 500 ML IV PRN (02:40)
--- NOTE | 2016-11-14 02:42 | CONS ---
DATE OF CONSULTATION: PULMONARY CONSULTATION ATTENDING PHYSICIAN: Dr. Cox REASON FOR CONSULTATION: Dyspnea, abnormal chest x-ray. HISTORY OF PRESENT ILLNESS: The patient is a 61-year-old male who has minimal history of tobacco use. He presented to the hospital with complaint of shortness of breath. He had no leg edema. He had mild nonproductive cough. No fever, no chills. I have reviewed the patient's chest x-ray which showed prominent interstitial markings consistent with interstitial edema. He had an echocardiogram done which was reviewed by me and it shows an ejection fraction of 10-15%. He has severe left ventricular diastolic dysfunction. Pulmonary artery systolic pressure was 51. Cardiology has been consulted. The patient is not on any diuretics on a scheduled basis. He had received one dose in the ER. PAST MEDICAL HISTORY: Significant for history of hypertension. No significant history of tobacco use. History of TIA and eye surgery. ALLERGIES: To corticosteroids. FAMILY HISTORY: Coronary artery disease. SOCIAL HISTORY: No significant prolonged history of tobacco use. MEDICATIONS: Reviewed as listed in the MRAD. SYSTEMS REVIEW: Twelve-point systems were obtained, pertinent positives discussed in my history of present illness, otherwise noncontributory. All systems that were negative were reviewed as well. PHYSICAL EXAMINATION: VITAL SIGNS: Stable, afebrile, pulse ox 93% on room air. NECK: Supple. LUNGS: Diminished breath sounds posteriorly. No wheezing. CARDIOVASCULAR: Regular rate. ABDOMEN: Soft, nontender. EXTREMITIES: With no pitting edema. LABORATORY DATA: Reviewed. White cell count 6.6, hemoglobin 13.5 and platelets are 223. BUN is 10 and creatinine 1.2. His troponin level is 0.082. IMPRESSION: 1. Acute hypoxic respiratory failure secondary to acute diastolic and systolic heart failure. 2. Abnormal echocardiogram with severe cardiomyopathy with an EF of 10-15% and severe left ventricular diastolic dysfunction. 3. No significant history of tobacco use. 4. Abnormal chest x-ray consistent with mild interstitial edema. RECOMMENDATIONS: 1. Would recommend continuing diuresis. 2. Consider inotropic agent. 3. Further ischemic workup per Cardiology. 4. Diuresis and follow chest x-ray. 5. Discuss with Cardiology. 6. Clinically unlikely pneumonia. MICHAEL SWANSON MD DR: RACQUEL/maddison JOB#: [id number] / [id number] RACHID
[2016-11-14 05:51] LABS: BASO % 1 % (0-3); EOS % 5 % (0-3); HEMATOCRIT 41.6 % (39.0-53.0); HEMOGLOBIN 13.7 g/dL (13.0-17.5); LYMPH # 2.3 x10^3/uL (1.0-4.8); LYMPH % 38 % (24-48); MEAN CORPUSCULAR HEMOGLOBIN 30 pg (25-35); MEAN CORPUSCULAR HGB CONC 33 g/dL (31-37); MEAN CORPUSCULAR VOLUME 91 fL (79-100); MONO % 9 % (0-9); NEUT % 47 % (31-73); PLATELET COUNT 241 x10^3/uL (140-400); RED CELL DISTRIBUTION WIDTH 15.7 % (11.5-14.5)
[2016-11-14] MEDS: NITROGLYCERIN OINT 1 GM PACKET. TP SCH ×2 (05:51)
[2016-11-14 06:17] LABS: CALCIUM 8.7 mg/dL (8.5-10.1); CREATININE 1.4 mg/dL (0.7-1.3); GFR 62.6; POTASSIUM 3.9 mmol/L (3.5-5.1)
[2016-11-14] MEDS ORDERED: LIDOCAINE 2% 20 ML VIAL. ONE (06:51)
[2016-11-14] MEDS ORDERED: HEPARIN for ARTERIAL LINE 1,500 ML ONE (06:51)
[2016-11-14] MEDS ORDERED: IODIXANOL 320 MG/ML 100 ML VIAL. ONE (06:52)
[2016-11-14] MEDS ORDERED: MIDAZOLAM HCL/PF 5 MG/5 ML VIAL ONE (07:06)
[2016-11-14] MEDS ORDERED: FENTANYL PF 100 MCG/2 ML VIAL. ONE (07:06)
[2016-11-14] MEDS ORDERED: IODIXANOL 320 MG/ML 100 ML VIAL. IART ONE (07:15)
[2016-11-14] MEDS ORDERED: LIDOCAINE 2% 20 ML VIAL. IJ ONE (07:15)
[2016-11-14] MEDS ORDERED: FENTANYL PF 100 MCG/2 ML VIAL. IV ONE (07:15)
[2016-11-14] MEDS ORDERED: MIDAZOLAM HCL/PF 5 MG/5 ML VIAL IV ONE (07:15)
--- NOTE | 2016-11-14 07:34 | PDOC ---
MODERATE SEDATION ASSESSMENT RISKS/ALTERNATIVES Risks/Alternatives Risks and alternatives of this type of sedation and procedure discussed with: RISK/ALTERNATIVES: Patient H & P ON CHART H & P H & P on chart and reviewed for co-morbid conditions and appropriate labs. H&P ON CHART: Yes STATUS PREG STATUS ASSESSED: N/A MEDS/ALLERGIES REVIEWED Meds/Allergies Reviewed Medications and Allergies including time and route of recently administered narcotics and sedatives. MEDS/ALLERGIES REVIEWED: Yes ASA RATING ASA RATING: II AIRWAY ASSESSMENT Airway Assessment Airway patency, oral function limitations, presence of caps, crowns, dentures, partials, and ability to extend neck assessed. AIRWAY ASSESSMENT: Yes MALLAMPATI SCORE MALLAMPATI SCORE: II PRE-SEDATION ASSESSMENT PRE-SEDATION ASSESSMENT: Yes SCOTT HUNT MD Nov 14, 2016 07:34
[2016-11-14] MEDS ORDERED: IV NORMAL SALINE 1000ML BAG 1,000 ML IV SCH (08:14)
--- NOTE | 2016-11-14 08:14 | PDOC4 ---
Operative Note Operative Note Brief cath note AO 110/78 Coronaries. Left main. No lesions. LAD. Mid 10% LCX. Proximal 15%. RCA. Proximal 20-25% lesion. Mild CAD. Non ischemic cardiomyopathy. Adjusting medical treatment. Life vest. Discussed with the patient and his family. Probably home tomorrow. SCOTT HUNT MD Nov 14, 2016 08:14
[2016-11-14] MEDS ORDERED: NITROGLYCERIN SUBLINGUAL 0.4 MG BOTTLE OF 25. SL PRN (08:15)
[2016-11-14] MEDS ORDERED: 0.9 % SODIUM CHLORIDE 10 ML DISP.SYRIN. IV PRN (08:15)
[2016-11-14] MEDS: ACETAMINOPHEN 325 MG TABLET. PO PRN (11:01)
[2016-11-14] MEDS: CARVEDILOL 6.25 MG TABLET PO SCH (11:01)
--- NOTE | 2016-11-14 12:35 | PDOC ---
PROGRESS NOTES Chief Complaint Chief Complaint cc: sob A/P ACUTE ON CHORIONIC SYSTOLIC CHF SEVERE CARDIOMYOPATHY ELEVATED TROPONIN, NSTEMI PLAN S/P CARDIAC CATH, CLEAN CORONARIES. BETA LUISANA AND LISINOPRIL TELEMETRY LABS REVIEWED, ANTICIPATED DC IN AM History of Present Illness History of Present Illness NO CHEST PAIN NO SOB NO FEVER NO SWEATING Vitals Vitals Vital Signs Date Time Temp Pulse Resp B/P Pulse Ox O2 Delivery O2 Flow Rate FiO2 11/14/16 11:15 97.5 75 112/83 98 Room Air 97.5 11/14/16 08:05 18 Physical Exam General: Alert, Oriented X3, mild distress Heart: Regular rate, Normal S1, Normal S2, Other Lungs: Clear Abdomen: Normal bowel sounds, Soft Extremities: No clubbing, No cyanosis Labs LABS Laboratory Tests Test 11/14/16 05:00 White Blood Count 6.0x10^3/uL (4.0-11.0) Red Blood Count 4.60x10^6/uL (4.30-5.70) Hemoglobin 13.7g/dL (13.0-17.5) Hematocrit 41.6% (39.0-53.0) Mean Corpuscular Volume 91fL (79-100) Mean Corpuscular Hemoglobin 30pg (25-35) Mean Corpuscular Hemoglobin Concent 33g/dL (31-37) Red Cell Distribution Width 15.7% (11.5-14.5) Platelet Count 241x10^3/uL (140-400) Neutrophils (%) (Auto) 47% (31-73) Lymphocytes (%) (Auto) 38% (24-48) Monocytes (%) (Auto) 9% (0-9) Eosinophils (%) (Auto) 5% (0-3) Basophils (%) (Auto) 1% (0-3) Neutrophils # (Auto) 2.8x10^3uL (1.8-7.7) Lymphocytes # (Auto) 2.3x10^3/uL (1.0-4.8) Monocytes # (Auto) 0.6x10^3/uL (0.0-1.1) Eosinophils # (Auto) 0.3x10^3/uL (0.0-0.7) Basophils # (Auto) 0.0x10^3/uL (0.0-0.2) Heparin Anti-Xa Act, Unfractionated 0.34IU/mL (0.30-0.70) Sodium Level 140mmol/L (136-145) Potassium Level 3.9mmol/L (3.5-5.1) Chloride Level 104mmol/L (98-107) Carbon Dioxide Level 28mmol/L (21-32) Anion Gap 8 (6-14) Blood Urea Nitrogen 11mg/dL (8-26) Creatinine 1.4mg/dL (0.7-1.3) Estimated GFR (Cockcroft-Gault) 62.6 Glucose Level 117mg/dL (70-99) Calcium Level 8.7mg/dL (8.5-10.1) Magnesium Level 2.0mg/dL (1.8-2.4) Assessment and Plan Assessmemt and Plan Problems Medical Problems: (1) Elevated troponin I level Status: Acute (2) SOB (shortness of breath) Status: Acute Problems: Comment Review of Relevant I have reviewed the following items varsha (where applicable) has been applied. Labs Laboratory Tests Test 11/12/16 13:10 11/12/16 14:10 11/12/16 19:15 11/12/16 22:05 Troponin I Quantitative 0.078ng/mL (0.000-0.055) 0.060ng/mL (0.000-0.055) Heparin Anti-Xa Act, Unfractionated 0.30IU/mL (0.30-0.70) 0.26IU/mL (0.30-0.70) Test 11/13/16 05:00 11/13/16 05:09 11/13/16 10:45 11/14/16 05:00 Heparin Anti-Xa Act, Unfractionated 0.37IU/mL (0.30-0.70) 0.45IU/mL (0.30-0.70) 0.34IU/mL (0.30-0.70) White Blood Count 6.6x10^3/uL (4.0-11.0) 6.0x10^3/uL (4.0-11.0) Red Blood Count 4.51x10^6/uL (4.30-5.70) 4.60x10^6/uL (4.30-5.70) Hemoglobin 13.5g/dL (13.0-17.5) 13.7g/dL (13.0-17.5) Hematocrit 41.7% (39.0-53.0) 41.6% (39.0-53.0) Mean Corpuscular Volume 92fL (79-100) 91fL (79-100) Mean Corpuscular Hemoglobin 30pg (25-35) 30pg (25-35) Mean Corpuscular Hemoglobin Concent 32g/dL (31-37) 33g/dL (31-37) Red Cell Distribution Width 15.3% (11.5-14.5) 15.7% (11.5-14.5) Platelet Count 223x10^3/uL (140-400) 241x10^3/uL (140-400) Neutrophils (%) (Auto) 54% (31-73) 47% (31-73) Lymphocytes (%) (Auto) 31% (24-48) 38% (24-48) Monocytes (%) (Auto) 10% (0-9) 9% (0-9) Eosinophils (%) (Auto) 4% (0-3) 5% (0-3) Basophils (%) (Auto) 1% (0-3) 1% (0-3) Neutrophils # (Auto) 3.6x10^3uL (1.8-7.7) 2.8x10^3uL (1.8-7.7) Lymphocytes # (Auto) 2.0x10^3/uL (1.0-4.8) 2.3x10^3/uL (1.0-4.8) Monocytes # (Auto) 0.7x10^3/uL (0.0-1.1) 0.6x10^3/uL (0.0-1.1) Eosinophils # (Auto) 0.2x10^3/uL (0.0-0.7) 0.3x10^3/uL (0.0-0.7) Basophils # (Auto) 0.0x10^3/uL (0.0-0.2) 0.0x10^3/uL (0.0-0.2) Sodium Level 141mmol/L (136-145) 140mmol/L (136-145) Potassium Level 3.5mmol/L (3.5-5.1) 3.9mmol/L (3.5-5.1) Chloride Level 105mmol/L (98-107) 104mmol/L (98-107) Carbon Dioxide Level 27mmol/L (21-32) 28mmol/L (21-32) Anion Gap 9 (6-14) 8 (6-14) Blood Urea Nitrogen 10mg/dL (8-26) 11mg/dL (8-26) Creatinine 1.2mg/dL (0.7-1.3) 1.4mg/dL (0.7-1.3) Estimated GFR (Cockcroft-Gault) 74.7 62.6 Glucose Level 137mg/dL (70-99) 117mg/dL (70-99) Calcium Level 8.7mg/dL (8.5-10.1) 8.7mg/dL (8.5-10.1) Magnesium Level 1.8mg/dL (1.8-2.4) 2.0mg/dL (1.8-2.4) Troponin I Quantitative 0.082ng/mL (0.000-0.055) Triglycerides Level 106mg/dL (0-150) Cholesterol Level 171mg/dL (0-200) LDL Cholesterol, Calculated 103mg/dL (0-100) VLDL Cholesterol, Calculated 21mg/dL (0-40) HDL Cholesterol 47mg/dL (40-60) Cholesterol/HDL Ratio 3.6 Laboratory Tests Test 11/14/16 05:00 White Blood Count 6.0x10^3/uL (4.0-11.0) Red Blood Count 4.60x10^6/uL (4.30-5.70) Hemoglobin 13.7g/dL (13.0-17.5) Hematocrit 41.6% (39.0-53.0) Mean Corpuscular Volume 91fL (79-100) Mean Corpuscular Hemoglobin 30pg (25-35) Mean Corpuscular Hemoglobin Concent 33g/dL (31-37) Red Cell Distribution Width 15.7% (11.5-14.5) Platelet Count 241x10^3/uL (140-400) Neutrophils (%) (Auto) 47% (31-73) Lymphocytes (%) (Auto) 38% (24-48) Monocytes (%) (Auto) 9% (0-9) Eosinophils (%) (Auto) 5% (0-3) Basophils (%) (Auto) 1% (0-3) Neutrophils # (Auto) 2.8x10^3uL (1.8-7.7) Lymphocytes # (Auto) 2.3x10^3/uL (1.0-4.8) Monocytes # (Auto) 0.6x10^3/uL (0.0-1.1) Eosinophils # (Auto) 0.3x10^3/uL (0.0-0.7) Basophils # (Auto) 0.0x10^3/uL (0.0-0.2) Heparin Anti-Xa Act, Unfractionated 0.34IU/mL (0.30-0.70) Sodium Level 140mmol/L (136-145) Potassium Level 3.9mmol/L (3.5-5.1) Chloride Level 104mmol/L (98-107) Carbon Dioxide Level 28mmol/L (21-32) Anion Gap 8 (6-14) Blood Urea Nitrogen 11mg/dL (8-26) Creatinine 1.4mg/dL (0.7-1.3) Estimated GFR (Cockcroft-Gault) 62.6 Glucose Level 117mg/dL (70-99) Calcium Level 8.7mg/dL (8.5-10.1) Magnesium Level 2.0mg/dL (1.8-2.4) Medications Current Medications Aspirin (Children'S Aspirin) 324 mg 1X ONCE PO Last administered on 11/12/16 06:38; Start 11/12/16 at 06:30; Stop 11/12/16 at 06:31; Status DC Heparin Sodium (Porcine) 4000 unit 4,000 unit 1X ONCE IV Last administered on 11/12/16 07:49; Start 11/12/16 at 07:30; Stop 11/12/16 at 07:31; Status DC Heparin Sodium/ Dextrose 500 ml @ 0 mls/hr CONT PRN IV SEE I/O RECORD Last administered on 1/10/17at 02:40; Start 11/12/16 at 07:30 Heparin Sodium (Porcine) 2,400 unit PRN Q6HRS PRN IV FOR UFH LEVEL LESS THAN 0.2; Start 11/12/16 at 07:30 Nitroglycerin (Nitrostat) 0.4 mg PRN Q5MIN PRN SL CHEST PAIN; Start 11/12/16 at 07:30; Stop 11/14/16 at 08:19; Status DC Ondansetron HCl (Zofran) 4 mg PRN Q8HRS PRN IV NAUSEA/VOMITING; Start 11/12/16 at 07:30; Stop 11/13/16 at 07:29; Status DC Morphine Sulfate 4 mg PRN Q2HR PRN IV PAIN; Start 11/12/16 at 07:30; Stop at 07:29; Status DC Acetaminophen (Tylenol) 650 mg PRN Q4HRS PRN PO FEVER; Start 11/12/16 at 07:30; Stop 11/13/16 at 07:29; Status DC Nitroglycerin (Nitrostat) 0.4 mg PRN Q5MIN PRN SL CHEST PAIN; Start 11/12/16 at 07:30; Stop 11/13/16 at 07:29; Status DC Nitroglycerin 1 inch 1 inch Q6HRS TP Last administered on 11/13/16 18:15; Start 11/12/16 at 18:00; Stop 11/14/16 at 07:51; Status DC Magnesium Sulfate/ Dextrose (Magnesium Sulfate PREMIX 1GM) 100 ml @ 100 mls/hr 1X ONCE IV Last administered on 11/12/16 18:05; Start 11/12/16 at 18:00; Stop 11/12/16 at 18:59; Status DC Sulfur Hexafluoride Microspheres (Lumason) 25 mg STK-MED ONCE IVP ; Start at 11:44; Stop 11/13/16 at 11:45; Status DC Acetaminophen (Tylenol) 325 mg PRN Q6HRS PRN PO MILD PAIN / TEMP Last administered on 11/14/16 11:01; Start 11/13/16 at 12:00 Acetaminophen/ Hydrocodone Bitart (Lortab 5/325) 1 tab PRN Q6HRS PRN PO MODERATE TO SEVERE PAIN; Start 11/13/16 at 12:00 Hydralazine HCl (Apresoline) 10 mg PRN Q4HRS PRN IVP ELEVATED BP, SEE COMMENTS ; Start 11/13/16 at 12:00 Ondansetron HCl (Zofran) 4 mg PRN Q8HRS PRN IV NAUSEA/VOMITING; Start 11/13/16 at 12:00 Albuterol Sulfate (Ventolin Neb Soln) 2.5 mg PRN Q4HRS PRN NEB SHORTNESS OF BREATH; Start 11/13/16 at 12:00 Furosemide (Lasix) 40 mg 1X ONCE IVP Last administered on 11/13/16 13:08; Start 11/13/16 at 12:00; Stop 11/13/16 at 12:01; Status DC Info (Anti-Coagulation Monitoring By Pharmacy) 1 each PRN DAILY PRN MC SEE COMMENTS; Start 11/13/16 at 12:00 Sulfur Hexafluoride Microspheres (Lumason) 25 mg 1X ONCE IVP ; Start 11/13/16 at 12:00; Stop 11/13/16 at 12:01; Status DC Carvedilol (Coreg) 6.25 mg BIDWMEALS PO Last administered on 11/14/16 11:01; Start 11/13/16 at 17:00 Lisinopril (Prinivil) 2.5 mg QHS PO Last administered on 11/13/16 21:09; Start 11/13/16 at 21:00 Atorvastatin Calcium 20 mg 20 mg QHS PO Last administered on 11/13/16 21:09; Start 11/13/16 at 21:00 Magnesium Sulfate/ Dextrose (Magnesium Sulfate PREMIX 2GM) 50 ml @ 25 mls/hr 1X ONCE IV Last administered on 11/13/16 15:50; Start 11/13/16 at 14:00; Stop 11/13/16 at 15:59; Status DC Potassium Chloride (Klor-Con) 40 meq 1X ONCE PO Last administered on 11/13/16 15:51; Start 11/13/16 at 14:00; Stop 11/13/16 at 14:01; Status DC Aspirin (Kirk Aspirin) 325 mg 1X ONCE PO Last administered on 11/13/16 15:50 ; Start 11/13/16 at 14:00; Stop 11/13/16 at 14:02; Status DC Furosemide (Lasix) 40 mg 1X ONCE IVP ; Start 11/13/16 at 15:45; Stop 11/13/16 at 15:58; Status DC Furosemide 20 mg 20 mg 1X ONCE IVP Last administered on 11/13/16 18:15; Start 11/13/16 at 16:00; Stop 11/13/16 at 16:01; Status DC Heparin Sodium/ Sodium Chloride 1,500 ml @ As Directed STK-MED ONCE .ROUTE ; Start 11/14/16 at 06:51; Stop 11/14/16 at 06:52; Status DC Lidocaine HCl 20 ml STK-MED ONCE .ROUTE ; Start 11/14/16 at 06:51; Stop at 06:52; Status DC Iodixanol (Visipaque 320) 100 ml STK-MED ONCE .ROUTE ; Start 11/14/16 at 06:52; Stop 11/14/16 at 06:53; Status DC Fentanyl Citrate (Fentanyl 2ml Vial) 100 mcg STK-MED ONCE .ROUTE ; Start at 07:06; Stop 11/14/16 at 07:07; Status DC Midazolam HCl (Versed) 5 mg STK-MED ONCE .ROUTE ; Start 11/14/16 at 07:06; Stop 11/14/16 at 07:07; Status DC Heparin Sodium/ Sodium Chloride 1,000 unit 1X ONCE IART Last administered on 08:07; Start 11/14/16 at 07:15; Stop 11/14/16 at 07:31; Status DC Midazolam HCl (Versed) 5 mg 1X ONCE IV Last administered on 11/14/16 08:06; Start 11/14/16 at 07:15; Stop 11/14/16 at 07:31; Status DC Fentanyl Citrate (Fentanyl 2ml Vial) 100 mcg 1X ONCE IV Last administered on 08:05; Start 11/14/16 at 07:15; Stop 11/14/16 at 07:31; Status DC Iodixanol (Visipaque 320) 100 ml 1X ONCE IART Last administered on 11/14/16 08:04; Start 11/14/16 at 07:15; Stop 11/14/16 at 07:31; Status DC Lidocaine HCl 20 ml 1X ONCE IJ Last administered on 11/14/16t 08:05; Start 08/21 at 07:15; Stop 11/14/16 at 07:31; Status DC Sodium Chloride 3 ml 3 ml QSHIFT PRN IV AFTER MEDS AND BLOOD DRAWS; Start 11/14 at 08:15 Sodium Chloride (Iv Sodium Chloride 0.9% 1000ml Bag) 1,000 ml @ 60 mls/hr [id number] IV ; Start 11/14/16 at 08:14; Stop 11/14/16 at 16:13 Nitroglycerin (Nitrostat) 0.4 mg PRN Q5MIN PRN SL CHEST PAIN; Start 11/14/16 at 08:15 Sulfur Hexafluoride Microspheres (Lumason) 25 mg STK-MED ONCE IVP ; Start at 12:00; Stop 11/14/16 at 08:17; Status DC Vitals/I & O Vital Sign - Last 24 Hours 11/13/16 11/13/16 11/13/16 11/13/16 13:07 15:00 18:15 18:15 Temp 97.8 97.8 Pulse 89 94 94 94 Resp 20 B/P 131/98 118/75 118/75 118/75 Pulse Ox 96 O2 Delivery Room Air 11/13/16 11/13/16 11/13/16 11/13/16 19:39 20:00 21:09 22:25 Temp 98.1 97.4 98.1 97.4 Pulse 92 85 85 Resp 18 20 B/P 109/78 109/78 122/89 Pulse Ox 98 99 O2 Delivery Room Air Room Air Room Air 11/14/16 11/14/16 11/14/16 11/14/16 03:00 05:51 08:00 08:01 Temp 98.4 98.4 Pulse 77 80 84 Resp 20 21 B/P 116/89 119/69 Pulse Ox 98 99 O2 Delivery Room Air Room Air Room Air 11/14/16 11/14/16 11/14/16 08:05 11:01 11:15 Temp 97.5 97.5 Pulse 84 75 Resp 18 B/P 109/77 112/83 Pulse Ox 99 98 O2 Delivery Room Air Room Air Intake and Output 11/13/16 11/13/16 11/14/16 15:00 23:00 07:00 Intake Total 810.5 ml Output Total 150 ml Balance 810.5 ml -150 ml JOAN PHILLIPS MD Nov 14, 2016 12:35
--- NOTE | 2016-11-14 13:10 | PDOC ---
PULMONARY PROGRESS NOTES Subjective no soa Vitals Vital Signs Date Time Temp Pulse Resp B/P Pulse Ox O2 Delivery O2 Flow Rate FiO2 11/14/16 11:15 97.5 75 112/83 98 Room Air 97.5 11/14/16 08:05 18 General: Alert, No acute distress Lungs: Clear Cardiovascular: S1 Abdomen: Soft Neuro Exam: Alert Extremities: No Edema Skin: Warm Labs Laboratory Tests Test 11/12/16 13:10 11/12/16 14:10 11/12/16 19:15 11/12/16 22:05 Troponin I Quantitative 0.078ng/mL (0.000-0.055) 0.060ng/mL (0.000-0.055) Heparin Anti-Xa Act, Unfractionated 0.30IU/mL (0.30-0.70) 0.26IU/mL (0.30-0.70) Test 11/13/16 05:00 11/13/16 05:09 11/13/16 10:45 11/14/16 05:00 Heparin Anti-Xa Act, Unfractionated 0.37IU/mL (0.30-0.70) 0.45IU/mL (0.30-0.70) 0.34IU/mL (0.30-0.70) White Blood Count 6.6x10^3/uL (4.0-11.0) 6.0x10^3/uL (4.0-11.0) Red Blood Count 4.51x10^6/uL (4.30-5.70) 4.60x10^6/uL (4.30-5.70) Hemoglobin 13.5g/dL (13.0-17.5) 13.7g/dL (13.0-17.5) Hematocrit 41.7% (39.0-53.0) 41.6% (39.0-53.0) Mean Corpuscular Volume 92fL (79-100) 91fL (79-100) Mean Corpuscular Hemoglobin 30pg (25-35) 30pg (25-35) Mean Corpuscular Hemoglobin Concent 32g/dL (31-37) 33g/dL (31-37) Red Cell Distribution Width 15.3% (11.5-14.5) 15.7% (11.5-14.5) Platelet Count 223x10^3/uL (140-400) 241x10^3/uL (140-400) Neutrophils (%) (Auto) 54% (31-73) 47% (31-73) Lymphocytes (%) (Auto) 31% (24-48) 38% (24-48) Monocytes (%) (Auto) 10% (0-9) 9% (0-9) Eosinophils (%) (Auto) 4% (0-3) 5% (0-3) Basophils (%) (Auto) 1% (0-3) 1% (0-3) Neutrophils # (Auto) 3.6x10^3uL (1.8-7.7) 2.8x10^3uL (1.8-7.7) Lymphocytes # (Auto) 2.0x10^3/uL (1.0-4.8) 2.3x10^3/uL (1.0-4.8) Monocytes # (Auto) 0.7x10^3/uL (0.0-1.1) 0.6x10^3/uL (0.0-1.1) Eosinophils # (Auto) 0.2x10^3/uL (0.0-0.7) 0.3x10^3/uL (0.0-0.7) Basophils # (Auto) 0.0x10^3/uL (0.0-0.2) 0.0x10^3/uL (0.0-0.2) Sodium Level 141mmol/L (136-145) 140mmol/L (136-145) Potassium Level 3.5mmol/L (3.5-5.1) 3.9mmol/L (3.5-5.1) Chloride Level 105mmol/L (98-107) 104mmol/L (98-107) Carbon Dioxide Level 27mmol/L (21-32) 28mmol/L (21-32) Anion Gap 9 (6-14) 8 (6-14) Blood Urea Nitrogen 10mg/dL (8-26) 11mg/dL (8-26) Creatinine 1.2mg/dL (0.7-1.3) 1.4mg/dL (0.7-1.3) Estimated GFR (Cockcroft-Gault) 74.7 62.6 Glucose Level 137mg/dL (70-99) 117mg/dL (70-99) Calcium Level 8.7mg/dL (8.5-10.1) 8.7mg/dL (8.5-10.1) Magnesium Level 1.8mg/dL (1.8-2.4) 2.0mg/dL (1.8-2.4) Troponin I Quantitative 0.082ng/mL (0.000-0.055) Triglycerides Level 106mg/dL (0-150) Cholesterol Level 171mg/dL (0-200) LDL Cholesterol, Calculated 103mg/dL (0-100) VLDL Cholesterol, Calculated 21mg/dL (0-40) HDL Cholesterol 47mg/dL (40-60) Cholesterol/HDL Ratio 3.6 Laboratory Tests Test 11/14/16 05:00 White Blood Count 6.0x10^3/uL (4.0-11.0) Red Blood Count 4.60x10^6/uL (4.30-5.70) Hemoglobin 13.7g/dL (13.0-17.5) Hematocrit 41.6% (39.0-53.0) Mean Corpuscular Volume 91fL (79-100) Mean Corpuscular Hemoglobin 30pg (25-35) Mean Corpuscular Hemoglobin Concent 33g/dL (31-37) Red Cell Distribution Width 15.7% (11.5-14.5) Platelet Count 241x10^3/uL (140-400) Neutrophils (%) (Auto) 47% (31-73) Lymphocytes (%) (Auto) 38% (24-48) Monocytes (%) (Auto) 9% (0-9) Eosinophils (%) (Auto) 5% (0-3) Basophils (%) (Auto) 1% (0-3) Neutrophils # (Auto) 2.8x10^3uL (1.8-7.7) Lymphocytes # (Auto) 2.3x10^3/uL (1.0-4.8) Monocytes # (Auto) 0.6x10^3/uL (0.0-1.1) Eosinophils # (Auto) 0.3x10^3/uL (0.0-0.7) Basophils # (Auto) 0.0x10^3/uL (0.0-0.2) Heparin Anti-Xa Act, Unfractionated 0.34IU/mL (0.30-0.70) Sodium Level 140mmol/L (136-145) Potassium Level 3.9mmol/L (3.5-5.1) Chloride Level 104mmol/L (98-107) Carbon Dioxide Level 28mmol/L (21-32) Anion Gap 8 (6-14) Blood Urea Nitrogen 11mg/dL (8-26) Creatinine 1.4mg/dL (0.7-1.3) Estimated GFR (Cockcroft-Gault) 62.6 Glucose Level 117mg/dL (70-99) Calcium Level 8.7mg/dL (8.5-10.1) Magnesium Level 2.0mg/dL (1.8-2.4) Impression . 1. Acute hypoxic respiratory failure secondary to acute diastolic and systolic heart failure. 2. Abnormal echocardiogram with severe cardiomyopathy with an EF of 10-15% and severe left ventricular diastolic dysfunction. 3. No significant history of tobacco use. 4. Abnormal chest x-ray consistent with mild interstitial edema. Plan . 1. Would recommend continuing diuresis. 2. s/p cath. no CAD 3. NON-ischemic CMP 4. Diuresis and follow chest x-ray. 5. Discuss with Cardiology. 6. unlikely pneumonia. 7. No further recommendations. will sign off MICHAEL SWANSON MD Nov 14, 2016 13:09
--- NOTE | 2016-11-14 15:51 | RAD ---
EXAM: Chest, single view. HISTORY: Congestive heart failure. COMPARISON: None. FINDINGS: A frontal view of the chest is obtained. There is no infiltrate, effusion or pneumothorax. There is mild cardiomegaly. IMPRESSION: Mild cardiomegaly.
[2016-11-14] MEDS ORDERED: CARVEDILOL 6.25 MG TABLET PO SCH (17:00)
[2016-11-14] MEDS: ATORVASTATIN CALCIUM 20 MG TABLET PO SCH (21:11)
[2016-11-14] MEDS: LISINOPRIL 2.5 MG TABLET PO SCH (21:12)
[2016-11-15 02:25] VITALS: BP 117/85
[2016-11-15 05:01] LABS: BASO % 1 % (0-3); EOS % 4 % (0-3); HEMATOCRIT 38.6 % (39.0-53.0); HEMOGLOBIN 12.8 g/dL (13.0-17.5); LYMPH # 1.8 x10^3/uL (1.0-4.8); LYMPH % 33 % (24-48); MEAN CORPUSCULAR HEMOGLOBIN 30 pg (25-35); MEAN CORPUSCULAR HGB CONC 33 g/dL (31-37); MEAN CORPUSCULAR VOLUME 91 fL (79-100); MONO % 9 % (0-9); NEUT % 54 % (31-73); PLATELET COUNT 258 x10^3/uL (140-400); RED BLOOD COUNT 4.24 x10^6/uL (4.30-5.70); RED CELL DISTRIBUTION WIDTH 16.1 % (11.5-14.5); WHITE BLOOD COUNT 5.7 x10^3/uL (4.0-11.0)
[2016-11-15 05:41] LABS: CALCIUM 8.6 mg/dL (8.5-10.1); CREATININE 1.4 mg/dL (0.7-1.3); GFR 62.6; POTASSIUM 4.1 mmol/L (3.5-5.1)
[2016-11-15 07:00] VITALS: BP 134/86
[2016-11-15] MEDS: ACETAMINOPHEN 325 MG TABLET. PO PRN (08:55)
[2016-11-15] MEDS ORDERED: METOPROLOL SUCC 24HR ER 25 MG TAB.ER.24H. PO SCH (09:00)
[2016-11-15 11:00] VITALS: BP 115/78
[2016-11-15] MEDS ORDERED: LISI2.5T PO (11:01)
[2016-11-15] MEDS ORDERED: ATOR20TA58 PO (11:01)
[2016-11-15] MEDS ORDERED: METO25TA9 PO (11:01)
--- NOTE | 2016-11-15 11:46 | PDOC ---
CARDIO Progress Notes Date and Time Date of Service 11/15/2016 Time of Evaluation 1135 Subjective Subjective: No Chest Pain, No shortness of breath, No Palpitations, No Dizziness Vitals Vitals Vital Signs Date Time Temp Pulse Resp B/P Pulse Ox O2 Delivery O2 Flow Rate FiO2 11/15/16 11:00 98.2 85 17 115/78 95 Room Air 98.2 Weight Weight [ ] Input and Output Intake and Output Intake and Output 11/15/16 07:00 Intake Total 1780 ml Output Total 500 ml Balance 1280 ml Intake Oral 1780 ml Output Urine Total 500 ml # Voids 3 Laboratory Labs Laboratory Tests Test 11/15/16 04:20 White Blood Count 5.7x10^3/uL (4.0-11.0) Red Blood Count 4.24x10^6/uL (4.30-5.70) Hemoglobin 12.8g/dL (13.0-17.5) Hematocrit 38.6% (39.0-53.0) Mean Corpuscular Volume 91fL (79-100) Mean Corpuscular Hemoglobin 30pg (25-35) Mean Corpuscular Hemoglobin Concent 33g/dL (31-37) Red Cell Distribution Width 16.1% (11.5-14.5) Platelet Count 258x10^3/uL (140-400) Neutrophils (%) (Auto) 54% (31-73) Lymphocytes (%) (Auto) 33% (24-48) Monocytes (%) (Auto) 9% (0-9) Eosinophils (%) (Auto) 4% (0-3) Basophils (%) (Auto) 1% (0-3) Neutrophils # (Auto) 3.0x10^3uL (1.8-7.7) Lymphocytes # (Auto) 1.8x10^3/uL (1.0-4.8) Monocytes # (Auto) 0.5x10^3/uL (0.0-1.1) Eosinophils # (Auto) 0.2x10^3/uL (0.0-0.7) Basophils # (Auto) 0.0x10^3/uL (0.0-0.2) Sodium Level 139mmol/L (136-145) Potassium Level 4.1mmol/L (3.5-5.1) Chloride Level 104mmol/L (98-107) Carbon Dioxide Level 29mmol/L (21-32) Anion Gap 6 (6-14) Blood Urea Nitrogen 11mg/dL (8-26) Creatinine 1.4mg/dL (0.7-1.3) Estimated GFR (Cockcroft-Gault) 62.6 Glucose Level 110mg/dL (70-99) Calcium Level 8.6mg/dL (8.5-10.1) Physical Exam HEENT: Neck Supple W Full Motion Chest: Symmetric LUNGS: Clear to Auscultation Heart: S1S2, RRR, no murmurs, other (? S3; tele: SR/ST; one run of 12-16 beats VT; now in [facility]est) Abdomen: Soft N/T Extremities: No Edema Neurology: alert, oriented, follow commands Diagnostic Tests Echocardiogram: Other (LVEF 10-15% with severe global hypokinesis of LV; severe LV diastolic dysfunction; moderate TR with posteriorly directed MR; moderate Pulm HTN with PA = 51 mm Hg) Assessment Assessment 1. acute on chronic systolic and diastolic CHF depressed LVEF ~ 10-15% - suspect etiology of dyspnea starting BB and ACEI holding diuretics due to renal function 2. Mild elevation in troponin echo with depressed LVEF and WMA - severe global hypokinesis discussed need for cardiac cath for further evaluation with R/B/A discussed 3. non-ischemic cardiomyopathy with LVEF 10-15% cardiac cath on 11/14/2016 without significant disease treated with BB and ACEI in LifeVest for prevention of SCD 4. Hypomagnesemia normalized 5. Hypertension controlled 6. HLD LDLs > 100 starting statin therapy 7. History of a TIA continue aspirin Advised by case management that pt is out of network @ [facility]; [facility] is in network for pt Will contact [facility] to make arrangements for follow up care with them in ~ 10 days Pt advised to stay off work until seen by [facility]; avoid heavy lifting; if fatigued - rest discussed daily weight and notification of physician if persistent 1# weight gain daily of 2 -3 # in one day also discussed monitoring of LE edema; low Na diet; fluid restrictions Radiology (Kaycee) notified to cloud over cath films, echo, CXR to JONATHAN CUNNINGHAM APRN Nov 15, 2016 11:46
--- NOTE | 2016-11-15 14:35 | CARD ---
APPROVED REPORT Procedures. Selective coronary angiogram. The patient is a pleasant 61-year-old male admitted with heart failure and a slight elevation in trop onin. Echocardiogram showed an ejection fraction of 20% or less. Catheterization was recommended for diagnosis of possible coronary artery disease. Risks and benefits were discussed. The patient agreed to proceed. After informed consent was obtained the patient was brought to the heart catheterization lab. The are a of the right femoral artery was prepared in the usual manner with Betadine, sterile draping and loc al anesthetic. An 18-gauge needle was used to enter the right femoral artery, a wire placed and a 6 F rench sheath placed over the wire. A 6 [place] JL4 diagnostic catheter was advanced to the ascending a khushbu. It was used used to gauge the left coronary system and sequential injections in various views w ere obtained. A 6 [place] Eduar right diagnostic catheter was advanced to the ascending aorta. It w as used to engage the right coronary artery and sequential injections in various were obtained. The c atheter was removed from the patient. Injection of the sheath showed normal placement. The sheath was removed and sealed with an Angio-Seal product. The patient was moved to the holding area in stable c ondition. Findings. Hemodynamics. Aortic root pressure of 110/77. Coronaries. Left main. The left main had no lesions. Left anterior descending. The LAD was a large vessel. It had mild proximal disease of 10%. Left circumflex. The left circumflex is a moderate size vessel. It had proximal disease of 15%. Right coronary artery. The right coronary was a moderate size vessel. It had a proximal lesion of 20- 25%. <Conclusion> Mild coronary artery disease with no lesions greater than 25%.
== END 2016-11-15 13:00 | disposition home or self-care (01) | DRG 286 ==
LOC: ER 05:34 → 2 SOUTH 07:25
PROVIDERS: ADMIT Internal Medicine; ATTEND Internal Medicine
PROC: 4A023N7 Measurement of Cardiac Sampling and Pressure, Left Heart, Percutaneous Approach (ICD-10-PCS; principal; 2016-11-15)
PROC: B2111ZZ Fluoroscopy of Multiple Coronary Arteries using Low Osmolar Contrast (ICD-10-PCS; 2016-11-15)
DX: I50.43 Acute on chronic combined systolic (congestive) and diastolic (congestive) heart failure (principal); J96.01 Acute respiratory failure with hypoxia; I42.9 Cardiomyopathy, unspecified; I11.0 Hypertensive heart disease with heart failure; E78.5 Hyperlipidemia, unspecified; E83.42 Hypomagnesemia; I25.10 Atherosclerotic heart disease of native coronary artery without angina pectoris; Z82.49 Family history of ischemic heart disease and other diseases of the circulatory system; Z86.73 Personal history of transient ischemic attack (TIA), and cerebral infarction without residual deficits; Z87.891 Personal history of nicotine dependence; Z88.8 Allergy status to other drugs, medicaments and biological substances
CPT/HCPCS: 93454; 99285; C8924; 36415; 71010; 71020; 80048; 80061; 83735; 83880; 84484; 85027; 85520; 87804; 93005; 93306; 94250; 94760; 96374; C1769; C1771; C1892; G0269; J2250; J3010; J3475; J7060; Q9950

== ENCOUNTER → 2017-11-13 | Outpatient (CLI) | payer OTHER | END | disposition home or self-care (01) | LOC: KCIC US 08:01 | DX: N28.1 Cyst of kidney, acquired (principal); R79.89 Other specified abnormal findings of blood chemistry; R94.5 Abnormal results of liver function studies | CPT/HCPCS: 76700 ==

== ENCOUNTER 2021-05-02 12:34 | Emergency (ER) | payer OTHER ==
[~2021-05-02] VITALS: Ht 182.9 cm; Wt 95.4 kg
[~2021-05-02 12:34] MED LIST: ATOR20TA58 PO; LISI2.5T PO; METO-239 PO
[2021-05-02] MEDS ORDERED: ORPHENADRINE CITRATE 60 MG/2 ML VIAL. IM ONE (16:00)
--- NOTE | 2021-05-02 16:16 | RAD ---
EXAM: Lumbar spine CT without contrast. HISTORY: Pain. TECHNIQUE: Computed tomographic images of the lumbar spine were obtained without contrast. Multiplana r reformatting was performed. *One or more of the following individualized dose reduction techniques were utilized for this examina tion: 1. Automated exposure control. 2. Adjustment of the mA and/or kV according to patient size. 3. Use of iterative reconstruction technique. COMPARISON: None. FINDINGS: There is mild lumbar scoliosis. There is grade 1 anterolisthesis of L3 on L4, measuring 3 m m. There is grade 1 anterolisthesis of L4 and L5, measuring 3 mm. There is degenerative endplate miranda deling and Schmorl's node formation primarily at the lower lumbar levels. There is also slight disc s pace narrowing at these levels. There are few osseous hemangiomas. There is no fracture or suspicious osseous lesion. There is a 4.7 cm hypodense structure within the left upper quadrant which appears t o be separate from the left adrenal gland, pancreas and kidney, likely due to a gastric diverticulum. There is degenerative spurring and partial ankylosis of the bilateral sacroiliac joints. There is si gmoid diverticulosis. There is lucency traversing the L2 spinous process, likely artifactual given th e absence of a fracture in this location on reconstructed images. At L1-L2, there is a mild disc bulge. There is moderate bilateral facet arthropathy. There is mild le ft foraminal stenosis. At L2-L3, there is a disc bulge and endplate remodeling. There is severe right and mild left facet ar thropathy. There is mild bilateral foraminal stenosis. At L3-L4, there is a disc bulge and endplate remodeling. There is severe bilateral facet arthropathy. There is grade 1 anterolisthesis. There is mild bilateral foraminal stenosis. There is mild central canal stenosis. At L4-L5, there are broad-based right foraminal to lateral and left foraminal to extra foraminal disc osteophyte complexes superimposed on a disc bulge and endplate remodeling. There is severe bilateral facet arthropathy. There is grade 1 anterolisthesis. There is moderate right and mild left foraminal stenosis. There is mild central canal stenosis. At L5-S1, there is a disc bulge and endplate osteophytosis. There is mild bilateral facet arthropathy . There is moderate to severe left foraminal stenosis. There is mild central canal stenosis. IMPRESSION: 1. Multilevel degenerative change involving the lumbar spine, described in detail above. This results in foraminal and central canal stenosis at the aforementioned levels. 2. No acute osseous finding. Electronically signed by: Judy Pack MD (05/02/2021 4:14 PM) [id number]
--- NOTE | 2021-05-02 16:25 | ED.ADGEN ---
Past Medical History Past Medical History: Diabetes-Type II, Hypertension, TIA Past Surgical History: Other Additional Past Surgical Histo: EYE SURGERY Smoking Status: Former Smoker Alcohol Use: Occasionally Drug Use: None General Adult EDM: Chief Complaint: BACK PAIN - NO INJURY HPI: HPI: Patient is a 65 year old AA male who presents emergency department with complaints of back spasms and low back pain that radiates down his left leg all the way to her left foot. Patient states that he has been doing physical therapy since the beginning of April, the spasms were so severe this morning that he was not able to go to physical therapy. He denies any saddle anesthesia, loss of bowel/bladder control, numbness, or tingling of his extremities. Patient denies any recent injuries or fall. He denies any abdominal pain, nausea, vomiting, dysuria, hematuria, increased urinary frequency. He currently rates the pain a 10 out of 10 on pain scale, he denies any alleviating factors, the pain is worse with movement and palpation. Review of Systems: Review of Systems: Complete ROS is negative unless otherwise noted in HPI. Current Medications: Current Medications Medications (Trade) Dose Ordered Sig/Jovita Start Time Stop Time Status Last Admin Dose Admin Orphenadrine Citrate (Norflex) 60 mg 1X ONCE 05/02/21 16:00 05/02/21 16:01 DC 05/02/21 16:23 60 MG Allergies: Allergies: Allergies Coded Allergies Type Severity Reaction Last Updated Verified Corticosteroids (Glucocorticoids) Allergy Intermediate 11/12/16 Yes Physical Exam: PE: See Above Constitutional: Well developed, well nourished, no acute distress, non-toxic appearance. [] HENT: Normocephalic, atraumatic, bilateral external ears normal, nose normal. [] Eyes: PERRLA, EOMI, conjunctiva normal, no discharge. [] Neck: Normal range of motion, no stridor. [] Cardiovascular:Heart rate regular rhythm Lungs & Thorax: Respirations even and unlabored, no retractions, no respiratory distress Abdomen: soft, no tenderness Back: No bony tenderness or deformity, increased pain with left straight leg lift Skin: Warm, dry, no erythema, no rash. [] Extremities: No cyanosis, ROM intact, no edema. [] Neurologic: Alert and oriented X 3, normal motor, normal sensory, no focal deficits noted. [] Psychologic: Affect normal, judgement normal, mood normal. [] Current Patient Data: Vital Signs: Vital Signs Date Time Temp Pulse Resp B/P (MAP) Pulse Ox O2 Delivery O2 Flow Rate FiO2 05/02/21 14:33 97.9 86 18 110/63 (79) 96 Room Air 97.9 EKG: EKG: [] Heart Score: C/O Chest Pain: No Radiology/Procedures: Radiology/Procedures: PROCEDURE: CT LUMBAR SPINE WO CONTRAST EXAM: Lumbar spine CT without contrast. HISTORY: Pain. TECHNIQUE: Computed tomographic images of the lumbar spine were obtained without contrast. Multiplanar reformatting was performed. *One or more of the following individualized dose reduction techniques were utilized for this examination: 1. Automated exposure control. 2. Adjustment of the mA and/or kV according to patient size. 3. Use of iterative reconstruction technique. COMPARISON: None. FINDINGS: There is mild lumbar scoliosis. There is grade 1 anterolisthesis of L3 on L4, measuring 3 mm. There is grade 1 anterolisthesis of L4 and L5, measuring 3 mm. There is degenerative endplate remodeling and Schmorl's node formation primarily at the lower lumbar levels. There is also slight disc space narrowing at these levels. There are few osseous hemangiomas. There is no fracture or suspicious osseous lesion. There is a 4.7 cm hypodense structure within the left upper quadrant which appears to be separate from the left adrenal gland, pancreas and kidney, likely due to a gastric diverticulum. There is degenerative spurring and partial ankylosis of the bilateral sacroiliac joints. There is sigmoid diverticulosis. There is lucency traversing the L2 spinous process, likely artifactual given the absence of a fracture in this location on reconstructed images. At L1-L2, there is a mild disc bulge. There is moderate bilateral facet arthropathy. There is mild left foraminal stenosis. At L2-L3, there is a disc bulge and endplate remodeling. There is severe right and mild left facet arthropathy. There is mild bilateral foraminal stenosis. At L3-L4, there is a disc bulge and endplate remodeling. There is severe bilateral facet arthropathy. There is grade 1 anterolisthesis. There is mild bilateral foraminal stenosis. There is mild central canal stenosis. At L4-L5, there are broad-based right foraminal to lateral and left foraminal to extra foraminal disc osteophyte complexes superimposed on a disc bulge and endplate remodeling. There is severe bilateral facet arthropathy. There is grade 1 anterolisthesis. There is moderate right and mild left foraminal stenosis. There is mild central canal stenosis. At L5-S1, there is a disc bulge and endplate osteophytosis. There is mild bilateral facet arthropathy. There is moderate to severe left foraminal stenosis. There is mild central canal stenosis. IMPRESSION: 1. Multilevel degenerative change involving the lumbar spine, described in detail above. This results in foraminal and central canal stenosis at the aforem entioned levels. 2. No acute osseous finding. [] Course & Med Decision Making: Course & Med Decision Making Pertinent Labs and Imaging studies reviewed. (See chart for details) [] Dragon Disclaimer: Dragon Disclaimer: This electronic medical record was generated, in whole or in part, using a voice recognition dictation system. Departure Departure Impression: Primary Impression: Left-sided low back pain with sciatica Additional Impression: Degenerative lumbar spinal stenosis Disposition: HOME / SELF CARE / HOMELESS Condition: STABLE Referrals: LOLA CASTANON MD (PCP) JORGE BATISTA MD Patient Instructions: Sciatica, [id number], Spinal Stenosis, [id number] Additional Instructions: Fill the prescription(s) and use as directed. Apply heat or ice for to sore areas as needed for comfort. Activity as tolerated. Follow up with your primary care doctor in 1-2 days, I have also provided Dr. Batista's information for follow up. Return to the ER if symptoms worsen or you develop a fever. Scripts Cyclobenzaprine Hcl (CYCLOBENZAPRINE HCL) 10 Mg Tablet 1 TAB PO TID PRN for MUSCLE PAIN for 10 Days, #30 TAB 0 Refills Prov: NEO JACKSON TOP PRECIPITATOR OPERATOR 05/02/21 Naproxen (NAPROXEN) 500 Mg Tablet 1 TAB PO BID PRN for PAIN for 10 Days, #20 TAB 0 Refills Prov: NEO JACKSON TOP PRECIPITATOR OPERATOR 05/02/21 Problem Qualifiers Primary Impression: Left-sided low back pain with sciatica Chronicity: unspecified Sciatica laterality: sciatica of left side Qualified Codes: M54.42 - Lumbago with sciatica, left side NEO JACKSON TOP PRECIPITATOR OPERATOR May 02, 2021 16:25
[2021-05-02] MEDS ORDERED: CYCL10TA2 PO (16:38)
[2021-05-02] MEDS ORDERED: NAPR-514 PO (16:38)
[2021-05-02 16:56] VITALS: BP 122/78
== END 2021-05-02 17:04 | disposition home or self-care (01) ==
LOC: ER 12:34
DX: M54.42 Lumbago with sciatica, left side (principal); M48.061 Spinal stenosis, lumbar region without neurogenic claudication; E11.9 Type 2 diabetes mellitus without complications; I10 Essential (primary) hypertension; Z86.73 Personal history of transient ischemic attack (TIA), and cerebral infarction without residual deficits; Z88.8 Allergy status to other drugs, medicaments and biological substances
CPT/HCPCS: 72131; 96372; 99284; J2360